=== PATIENT | female | born 1955 | race Caucasian/White ===

== ENCOUNTER 2018-12-15 09:27 | Observation (INO) | payer BC ==
[2018-12-15] MEDS ORDERED: Albuterol/Ipratropium 3.0-0.5 MG/3 ML Neb Soln NEB ONE ×2 (09:50→10:30)
[2018-12-15] MEDS ORDERED: methylPREDNISolone Sodium Succinate 125 MG/2 ML SDV IV ONE (09:50)
[2018-12-15] MEDS ORDERED: Albuterol 0.083% 2.5 MG/3 ML Neb Soln NEB ONE (09:51)
[2018-12-15 10:36] LABS: ANION GAP 15.1 mmol/L (10-20); CHLORIDE,CL 107 mmol/L (98-107); SODIUM,NA 144 mmol/L (136-145)
--- NOTE | 2018-12-15 10:38 | CR ---
[id number] RAD/RAD Chest PA or AP 1V EXAM: FRONTAL CHEST INDICATION: DYSPNEA. COMPARISON: None. DISCUSSION: Heart is borderline enlarged without evidence of congestive heart failure. No focal infiltrates are identified, but evaluation is somewhat limited by portable technique and body habitus. IMPRESSION: 1. Borderline heart size without evidence of congestive heart failure. Dionicio Gaviria MD 12/15/18 1037 Thank you for allowing us to participate in the care of your patient.
--- NOTE | 2018-12-15 10:41 | EDM.PDOC ---
ED HPI GENERAL MEDICAL PROBLEM - General Stated Complaint: SHORTNESS OF BREATH COUGHING WEEZING Time Seen by Provider: 12/15/18 09:35 Source of Information: Reports: Patient History Limitations: Reports: No Limitations - History of Present Illness INITIAL COMMENTS - FREE TEXT/NARRATIVE: Pt. presents to ER with complaints of cough, wheezing, and chest congestion for the past several days. She was recently diagnosed with asthma after taking a PFT /methacholine challenge. She has had 2 exacerbations in the past several months. States that she has never had issues with asthma or COPD in the past. She does have a strong family history of asthma. Pt. was started on an inhaled corticosteroid/LABA combo but has not started this medication yet. She only has albuterol inhaler for acute symptoms. Denies any chest pain, neck, back or arm pain. No nausea/vomiting. Denies diaphoresis. Onset Date: 12/05/18 Location: Reports: Chest, Generalized Severity: Moderate Associated Symptoms: Reports: Shortness of Breath - Related Data Allergies Allergy/AdvReac Type Severity Reaction Status Date / Time aspirin Allergy Shortness Verified 12/15/18 10:25 of breath, eye swelling Home Meds: Home Meds Albuterol Sulfate [Proair Hfa] 2 puff IH QID PRN 12/15/18 [History] Fluticasone Propionate [Flonase] 1 spray NS BID 12/15/18 [History] Fluticasone/Vilanterol [Breo Ellipta 200-25 Mcg INH] 1 puff IH DAILY 12/15/18 [ History] ED ROS GENERAL - Review of Systems Review Of Systems: See Below Constitutional: Reports: Fatigue. Denies: Fever, Chills, Weakness, Diaphoresis HEENT: Reports: No Symptoms, Rhinitis, Sinus Problem Respiratory: Reports: Shortness of Breath, Wheezing Cardiovascular: Reports: No Symptoms Endocrine: Reports: No Symptoms GI/Abdominal: Reports: No Symptoms : Reports: No Symptoms Musculoskeletal: Reports: No Symptoms Skin: Reports: No Symptoms Neurological: Reports: No Symptoms Psychiatric: Reports: No Symptoms Hematologic/Lymphatic: Reports: No Symptoms Immunologic: Reports: No Symptoms ED EXAM, GENERAL - Physical Exam Exam: See Below Exam Limited By: No Limitations General Appearance: Alert, WD/WN, No Apparent Distress Throat/Mouth: Normal Inspection, Normal Lips, Normal Teeth, Normal Gums, Normal Oropharynx, Normal Voice, No Airway Compromise Head: Atraumatic, Normocephalic Neck: Normal Inspection, Supple, Non-Tender, Full Range of Motion Respiratory/Chest: Chest Non-Tender, Decreased Breath Sounds, Wheezing Cardiovascular: Normal Peripheral Pulses, Regular Rate, Rhythm, No Edema, No Gallop, No JVD, No Murmur, No Rub Peripheral Pulses: 3+: Radial (R) GI/Abdominal: Soft, No Organomegaly, No Distention, No Mass (Female) Exam: Deferred Rectal (Female) Exam: Deferred Back Exam: Normal Inspection, Full Range of Motion, NT Extremities: Normal Inspection, Normal Range of Motion, Non-Tender, Normal Capillary Refill, No Pedal Edema Neurological: Alert, Oriented, CN II-XII Intact, Normal Cognition, Normal Gait, Normal Reflexes, No Motor/Sensory Deficits Psychiatric: Normal Affect, Normal Mood EKG INTERPRETATION Rhythm: NSR [place]: Normal P-Wave: Present QRS: Normal ST-T: Normal QT: Normal Course - Orders/Labs/Meds Orders: Active Orders 24 hr Category Date Time Status EKG Documentation Completion [RC] STAT Care 12/15/18 09:49 Active Oxygen Therapy [RC] PRN Care 12/15/18 09:49 Active RT Aerosol Therapy [RC] ASDIRECTED Care 12/15/18 09:50 Active RT Aerosol Therapy [RC] ASDIRECTED Care 12/15/18 09:51 Active RT Aerosol Therapy [RC] ASDIRECTED Care 12/15/18 10:30 Ordered Chest 1V Frontal [CR] Stat Exams 12/15/18 09:52 Taken CBC WITH AUTO DIFF [HEME] Stat Lab 12/15/18 09:48 Received COMPREHENSIVE METABOLIC PN,CMP [CHEM] Stat Lab 12/15/18 09:48 Received CRP [C-REACTIVE PROTEIN] [CHEM] Stat Lab 12/15/18 09:48 Received INFLUENZA A+B AG SCREEN [RM] Stat Lab 12/15/18 09:49 Ordered MAGNESIUM [CHEM] Stat Lab 12/15/18 09:48 Received PHOSPHORUS [CHEM] Stat Lab 12/15/18 09:48 Received PRO B-TYPE NATRIUR PEPT,BNPPRO [CHEM] Stat Lab 12/15/18 09:48 Received TROPONIN I [CHEM] Stat Lab 12/15/18 09:48 Received TSH ULTRASENSITIVE [CHEM] Stat Lab 12/15/18 09:48 Received Sodium Chloride 0.9% [Saline Flush] Med 12/15/18 09:48 Active 10 ml FLUSH ASDIRECTED PRN Peripheral IV Insertion Adult [OM.PC] Routine Oth 12/15/18 09:49 Ordered Medication Orders Sodium Chloride (Saline Flush) 10 ml FLUSH ASDIRECTED PRN PRN Reason: Keep Vein Open Labs: Laboratory Tests 12/15/18 Range/Units 09:48 PT 10.0 (9.6-11.4) SEC INR 1.0 L (2.0-3.5) Meds: Medications Generic Name Dose Route Start Last Admin Trade Name Freq PRN Reason Stop Dose Admin Sodium Chloride 10 ml 12/15/18 09:48 Saline Flush FLUSH ASDIRECTED PRN Keep Vein Open Discontinued Medications Generic Name Dose Route Start Last Admin Trade Name Freq PRN Reason Stop Dose Admin Albuterol 2.5 mg 12/15/18 09:51 Proventil Neb Soln NEB 12/15/18 09:52 ONETIME ONE Albuterol/Ipratropium 3 ml 12/15/18 09:50 Duoneb 3.0-0.5 Mg/3 Ml NEB 12/15/18 09:51 ONETIME ONE Albuterol/Ipratropium 3 ml 12/15/18 10:30 Duoneb 3.0-0.5 Mg/3 Ml NEB 12/15/18 10:31 ONETIME ONE Methylprednisolone Sodium Succinate 125 mg 12/15/18 09:50 Solu-Medrol IV 12/15/18 09:51 ONETIME ONE - Radiology Interpretation Free Text/Narrative:: No acute infiltrate of failure pattern. Borderline cardiomegaly, possibly due to portable technique. Departure - Departure Time of Disposition: 11:03 Disposition: Refer to Observation Clinical Impression: Acute asthma - Discharge Information Referrals: Tata Landaverde PA-C [Primary Care Provider] - - Problem List Review Problem List Initiated/Reviewed/Updated: Yes - My Orders Last 24 Hours: My Active Orders 12/15/18 09:48 CBC WITH AUTO DIFF [HEME] Stat COMPREHENSIVE METABOLIC PN,CMP [CHEM] Stat CRP [C-REACTIVE PROTEIN] [CHEM] Stat MAGNESIUM [CHEM] Stat PHOSPHORUS [CHEM] Stat PRO B-TYPE NATRIUR PEPT,BNPPRO [CHEM] Stat TROPONIN I [CHEM] Stat TSH ULTRASENSITIVE [CHEM] Stat Sodium Chloride 0.9% [Saline Flush] 10 ml FLUSH ASDIRECTED PRN 12/15/18 09:49 EKG Documentation Completion [RC] STAT Oxygen Therapy [RC] PRN INFLUENZA A+B AG SCREEN [RM] Stat Peripheral IV Insertion Adult [OM.PC] Routine 12/15/18 09:50 RT Aerosol Therapy [RC] ASDIRECTED 12/15/18 09:51 RT Aerosol Therapy [RC] ASDIRECTED 12/15/18 09:52 Chest 1V Frontal [CR] Stat 12/15/18 10:30 RT Aerosol Therapy [RC] ASDIRECTED - Assessment/Plan Admission H&P: Please use this note as an admission H&P Last 24 Hours: My Active Orders 12/15/18 09:48 CBC WITH AUTO DIFF [HEME] Stat COMPREHENSIVE METABOLIC PN,CMP [CHEM] Stat CRP [C-REACTIVE PROTEIN] [CHEM] Stat MAGNESIUM [CHEM] Stat PHOSPHORUS [CHEM] Stat PRO B-TYPE NATRIUR PEPT,BNPPRO [CHEM] Stat TROPONIN I [CHEM] Stat TSH ULTRASENSITIVE [CHEM] Stat Sodium Chloride 0.9% [Saline Flush] 10 ml FLUSH ASDIRECTED PRN 12/15/18 09:49 EKG Documentation Completion [RC] STAT Oxygen Therapy [RC] PRN INFLUENZA A+B AG SCREEN [RM] Stat Peripheral IV Insertion Adult [OM.PC] Routine 12/15/18 09:50 RT Aerosol Therapy [RC] ASDIRECTED 12/15/18 09:51 RT Aerosol Therapy [RC] ASDIRECTED 12/15/18 09:52 Chest 1V Frontal [CR] Stat 12/15/18 10:30 RT Aerosol Therapy [RC] ASDIRECTED Plan: Will admit observation. She continues to wheeze quite a lot after 3 nebs. Initial peak flow was 300 (80%) and has consistently been in the 330 (88%) range. She is still obviously dyspneic, particularly with activity. Influenza was negative. No obvious infiltrate noted on the chest x-ray. She is a code 1. Will continue with duonebs every 4 hours, with albuterol as needed in between. Continue with solu medrol. Start doxycycline 100mg twice daily as well. All questions were answered.
[2018-12-15] MEDS ORDERED: Doxycycline 100 MG Cap PO ONE (10:54)
[2018-12-15] MEDS ORDERED: Albuterol 0.083% 2.5 MG/3 ML Neb Soln NEB PRN (11:27)
[2018-12-15] MEDS: VILANTEROL IH SCH (12:08)
[2018-12-15] MEDS: FLUTICASONE IH SCH (12:08)
[2018-12-15] MEDS: Albuterol/Ipratropium 3.0-0.5 MG/3 ML Neb Soln NEB SCH ×3 (14:41→22:32)
[2018-12-15] MEDS: methylPREDNISolone Sodium Succinate 125 MG/2 ML SDV IVPUSH SCH ×2 (15:40→22:32)
[2018-12-15] MEDS: Acetaminophen 500 MG Tab PO PRN ×2 (16:28→22:40)
[2018-12-15] MEDS: Doxycycline 100 MG Cap PO SCH (20:08)
[2018-12-15] MEDS: Sodium Chloride 0.9% 10 ML Syringe FLUSH PRN (22:32)
[2018-12-16] MEDS: Ondansetron 4 MG/2 ML SDV IVPUSH SCH ×3 (00:08→16:03)
[2018-12-16] MEDS: Sodium Chloride 0.9% 10 ML Syringe FLUSH PRN ×2 (00:08→03:25)
[2018-12-16] MEDS: Albuterol/Ipratropium 3.0-0.5 MG/3 ML Neb Soln NEB SCH ×6 (03:24→22:27)
[2018-12-16] MEDS: methylPREDNISolone Sodium Succinate 125 MG/2 ML SDV IVPUSH SCH ×4 (03:24→22:27)
[2018-12-16] MEDS: Acetaminophen 500 MG Tab PO PRN ×3 (04:51→22:27)
[2018-12-16] MEDS: FLUTICASONE IH SCH (08:12)
[2018-12-16] MEDS: Doxycycline 100 MG Cap PO SCH ×2 (08:12→19:26)
[2018-12-16] MEDS: VILANTEROL IH SCH (08:12)
[2018-12-16] MEDS: Lactated Ringers 1,000 ML IV SCH ×2 (09:19→19:28)
[2018-12-16] MEDS ORDERED: Metoclopramide 10 MG/2 ML SDV IVPUSH SCH (09:30)
[2018-12-16 10:02] LABS: ANION GAP 17.9 mmol/L (10-20)
--- NOTE | 2018-12-16 10:26 | PCM.PN ---
- General Info Date of Service: 12/09/18 Admission Dx/Problem (Free Text): 12/16/18 1800 Pt. states that she is feeling somewhat less short of breath. Her peak flows are still in the 250-300 range. Denies any fever or chills. No chest pain. No nausea or vomiting since decreasing the steroids. She still is dyspneic when she is up ambulating or using the bathroom, but denies any significant dyspnea when she is resting. Functional Status: Reports: Pain Controlled - Review of Systems General: Reports: Fatigue. Denies: Fever, Weakness HEENT: Reports: No Symptoms Pulmonary: Reports: Shortness of Breath, Wheezing Cardiovascular: Reports: No Symptoms Gastrointestinal: Reports: Diarrhea Genitourinary: Reports: No Symptoms Musculoskeletal: Reports: No Symptoms Skin: Reports: No Symptoms Neurological: Reports: No Symptoms Psychiatric: Reports: No Symptoms - Patient Data Vitals - Most Recent: Last Vital Signs Temp 37.2 C 12/16/18 09:57 Pulse 87 12/16/18 09:57 Resp 20 12/16/18 09:57 BP 138/80 12/16/18 09:57 Pulse Ox 91 L 12/16/18 09:57 Weight - Most Recent: 90.718 kg I&O - Last 24 Hours: Intake & Output 12/15/18 12/16/18 12/16/18 22:59 06:59 14:59 Intake Total 240 350 Output Total 250 300 300 Balance -10 50 -300 Lab Results Last 24 Hours: Laboratory Results - last 24 hr 12/15/18 12/15/18 12/15/18 Range/Units 09:48 09:48 09:48 WBC 7.9 (4.0-10.0) x10^3/uL RBC 4.57 (4.00-5.50) x10^6/uL Hgb 13.5 (12.0-16.0) g/dL Hct 42.6 (33.0-47.0) % MCV 93.2 H (78.0-93.0) fL MCH 29.5 (26.0-32.0) pg MCHC 31.7 L (32.0-36.0) g/dL RDW Coeff of Elan 13.7 (10.0-15.0) % Plt Count 255 (130-400) x10^3/uL Neut % (Auto) 52.2 (50.0-80.0) % Lymph % (Auto) 24.2 L (25.0-50.0) % [place] % (Auto) 6.1 (2.0-11.0) % Eos % (Auto) 16.9 H (0.0-4.0) % Baso % (Auto) 0.6 (0.2-1.2) % PT 10.0 (9.6-11.4) SEC INR 1.0 L (2.0-3.5) Sodium 144 (136-145) mmol/L Potassium 4.1 (3.5-5.1) mmol/L Chloride 107 (98-107) mmol/L Carbon Dioxide 26 (21-32) mmol/L Anion Gap 15.1 (10-20) mmol/L BUN 13 (7-18) mg/dL Creatinine 1.0 (0.55-1.02) mg/dL Est Cr Clr Drug Dosing TNP Estimated GFR (MDRD) 56 Glucose 84 (74-106) mg/dL Calcium 9.5 (8.5-10.1) mg/dL Corrected Calcium 9.90 (8.5-10.1) mg/dL Phosphorus 2.2 L (2.6-4.7) mg/dL Magnesium 2.1 (1.8-2.4) mg/dL Total Bilirubin 0.3 (0.2-1.0) mg/dL AST 17 (15-37) U/L ALT 29 (14-59) U/L Alkaline Phosphatase 92 (46-116) U/L Troponin I < 0.017 (<=0.056) ng/mL C-Reactive Protein 1.4 H (<=0.9) mg/dL NT-Pro-B Natriuret Pep 85 (<=125) pg/mL Total Protein 7.3 (6.4-8.2) g/dL Albumin 3.5 (3.4-5.0) g/dL Globulin 3.8 Albumin/Globulin Ratio 0.92 TSH, Ultra Sensitive 1.438 (0.358-3.74) uIU/mL 12/15/18 12/16/18 12/16/18 Range/Units 16:50 09:24 09:24 WBC 15.5 H (4.0-10.0) x10^3/uL RBC 4.74 (4.00-5.50) x10^6/uL Hgb 14.0 (12.0-16.0) g/dL Hct 43.6 (33.0-47.0) % MCV 92.0 (78.0-93.0) fL MCH 29.5 (26.0-32.0) pg MCHC 32.1 (32.0-36.0) g/dL RDW Coeff of Elan 14.0 (10.0-15.0) % Plt Count 289 (130-400) x10^3/uL Neut % (Auto) 92.5 H (50.0-80.0) % Lymph % (Auto) 6.5 L (25.0-50.0) % [place] % (Auto) 0.8 L (2.0-11.0) % Eos % (Auto) 0.1 (0.0-4.0) % Baso % (Auto) 0.1 L (0.2-1.2) % PT (9.6-11.4) SEC INR (2.0-3.5) Sodium 142 (136-145) mmol/L Potassium 3.9 (3.5-5.1) mmol/L Chloride 105 (98-107) mmol/L Carbon Dioxide 23 (21-32) mmol/L Anion Gap 17.9 (10-20) mmol/L BUN 14 (7-18) mg/dL Creatinine 1.0 (0.55-1.02) mg/dL Est Cr Clr Drug Dosing 40.82 Estimated GFR (MDRD) 56 Glucose 161 H (74-106) mg/dL Calcium 10.0 (8.5-10.1) mg/dL Corrected Calcium 10.16 H (8.5-10.1) mg/dL Phosphorus (2.6-4.7) mg/dL Magnesium (1.8-2.4) mg/dL Total Bilirubin 0.4 (0.2-1.0) mg/dL AST 15 (15-37) U/L ALT 31 (14-59) U/L Alkaline Phosphatase 88 (46-116) U/L Troponin I < 0.017 (<=0.056) ng/mL C-Reactive Protein 0.8 (<=0.9) mg/dL NT-Pro-B Natriuret Pep (<=125) pg/mL Total Protein 7.6 (6.4-8.2) g/dL Albumin 3.8 (3.4-5.0) g/dL Globulin 3.8 Albumin/Globulin Ratio 1.00 TSH, Ultra Sensitive (0.358-3.74) uIU/mL Shadi Results Last 24 Hours: Microbiology 12/15/18 09:49 Influenza Type A Antigen Screen - Final Nasal, Unspecified NEGATIVE INFLUENZA A VIRUS AG Influenza Type B Antigen Screen - Final NEGATIVE INFLUENZA B VIRUS AG Med Orders - Current: Current Medications Acetaminophen (Tylenol Extra Strength) 1,000 mg PO Q6H PRN PRN Reason: Pain Last Admin: 12/16/18 04:51 Dose: 1,000 mg Albuterol (Proventil Neb Soln) 2.5 mg NEB Q2H PRN PRN Reason: Dyspnea Last Admin: 12/16/18 09:09 Dose: 2.5 mg Albuterol/Ipratropium (Duoneb 3.0-0.5 Mg/3 Ml) 3 ml NEB Q4HRRT [facility] Last Admin: 12/16/18 07:03 Dose: 3 ml Doxycycline Hyclate (Vibramycin) 100 mg PO BID [facility] Last Admin: 12/16/18 08:12 Dose: 100 mg Lactated Ringer's (Ringers, Lactated) 1,000 mls @ 100 mls/hr IV ASDIRECTED [facility] Last Admin: 12/16/18 09:19 Dose: 100 mls/hr Methylprednisolone Sodium Succinate (Solu-Medrol) 80 mg IVPUSH Q6H [facility] Patients Own ( Fluticasone/Vilanterol [Breo Ellipta 200-25 Mcg Inh] 1 Pu 1 puff IH DAILY [facility] Last Admin: 12/16/18 08:12 Dose: 1 puff Ondansetron HCl (Zofran) 4 mg IVPUSH Q8H [facility] Last Admin: 12/16/18 08:11 Dose: 4 mg Sodium Chloride (Saline Flush) 10 ml FLUSH ASDIRECTED PRN PRN Reason: Keep Vein Open Last Admin: 12/16/18 03:25 Dose: 10 ml Discontinued Medications Albuterol (Proventil Neb Soln) 2.5 mg NEB ONETIME ONE Stop: 12/15/18 09:52 Last Admin: 12/15/18 10:00 Dose: 2.5 mg Albuterol/Ipratropium (Duoneb 3.0-0.5 Mg/3 Ml) 3 ml NEB ONETIME ONE Stop: 12/15/18 09:51 Last Admin: 12/15/18 09:38 Dose: 3 ml Albuterol/Ipratropium (Duoneb 3.0-0.5 Mg/3 Ml) 3 ml NEB ONETIME ONE Stop: 12/15/18 10:31 Last Admin: 12/15/18 10:40 Dose: 3 ml Doxycycline Hyclate (Vibramycin) 100 mg PO ONETIME ONE Stop: 12/15/18 10:55 Last Admin: 12/15/18 11:06 Dose: 100 mg Methylprednisolone Sodium Succinate (Solu-Medrol) 125 mg IV ONETIME ONE Stop: 12/15/18 09:51 Last Admin: 12/15/18 09:40 Dose: 125 mg Methylprednisolone Sodium Succinate (Solu-Medrol) 125 mg IVPUSH Q6H [facility] Last Admin: 12/16/18 03:24 Dose: 125 mg Metoclopramide HCl (Reglan) 5 mg IVPUSH Q6H [facility] Last Admin: 12/16/18 09:15 Dose: 5 mg - Exam Quality Assessment: Supplemental Oxygen General: Alert, Oriented Neck: Supple Lungs: Decreased Breath Sounds, Wheezing Cardiovascular: Regular Rate, Regular Rhythm GI/Abdominal Exam: Soft, No Mass, Tender (diffusely tender), Other (hyperactive bowel sounds) (Female) Exam: Deferred Extremities: Normal Inspection, Normal Range of Motion, Non-Tender, No Pedal Edema, Normal Capillary Refill Peripheral Pulses: 4+: Radial (R) Skin: Warm, Dry, Intact Neurological: No New Focal Deficit Psy/Mental Status: Alert, Normal Affect, Normal Mood - Problem List Review Problem List Initiated/Reviewed/Updated: Yes - My Orders Last 24 Hours: My Active Orders 12/15/18 09:48 Sodium Chloride 0.9% [Saline Flush] 10 ml FLUSH ASDIRECTED PRN 12/15/18 09:49 Oxygen Therapy [RC] PRN Peripheral IV Insertion Adult [OM.PC] Routine 12/15/18 09:50 RT Aerosol Therapy [RC] ASDIRECTED 12/15/18 09:51 RT Aerosol Therapy [RC] ASDIRECTED 12/15/18 10:30 RT Aerosol Therapy [RC] 03,07,11,15,19,23 12/15/18 10:53 Patient Status [ADT] Routine 12/15/18 11:25 Intake and Output [RC] 06,18 Oxygen Therapy [RC] 08,20 Up With Assistance [RC] 08,20 Vital Signs [RC] 06,10,14,18,22,02 Code Status [Resuscitation Status] Routine 12/15/18 11:27 RT Aerosol Therapy [RC] ASDIRECTED RT Aerosol Therapy [RC] ASDIRECTED Albuterol [Proventil Neb Soln] 2.5 mg NEB Q2H PRN 12/15/18 11:30 Fluticasone/Vilanterol [Breo Ellipta 200-25 Mcg INH] 1 puff IH DAILY 12/15/18 15:00 Albuterol/Ipratropium [DuoNeb 3.0-0.5 MG/3 ML] 3 ml NEB Q4HRRT 12/15/18 15:57 Acetaminophen [Tylenol Extra Strength] 1,000 mg PO Q6H PRN 12/15/18 20:00 Doxycycline [Vibramycin] 100 mg PO BID 12/15/18 23:40 Dietary Supplements [RC] 0730,1730 12/15/18 Lunch Regular Diet [DIET] 12/16/18 00:00 Ondansetron [Zofran] 4 mg IVPUSH Q8H 12/16/18 09:05 Chest 2V [CR] Routine 12/16/18 09:15 Lactated Ringers [Ringers, Lactated] 1,000 ml IV ASDIRECTED 12/16/18 10:00 methylPREDNISolone Sod Succ [Solu-MEDROL] 80 mg IVPUSH Q6H - Plan Plan:: COntinue with IV NS with 40 kcl at 125ml/hr. Continue with oral vitamin K for coagulopathy.
--- NOTE | 2018-12-16 11:32 | CR ---
[id number] RAD/RAD Chest PA And Lateral EXAM: RAD Chest PA And Lateral INDICATION: ASTHMA EXACERBATION. COMPARISON: December 15, 2018. DISCUSSION: Cardiomediastinal silhouette is stable in size and contour. No infiltrate, effusion, pneumothorax, or edema. Pulmonary hyperinflation. IMPRESSION: Stable chest. Bhavik Davison DO 12/16/18 1130 Thank you for allowing us to participate in the care of your patient.
--- NOTE | 2018-12-16 14:34 | PCM.PN ---
- General Info Date of Service: 12/16/18 Admission Dx/Problem (Free Text): Pt. is continuing to have some dyspnea and wheezing. Pt. did have some nausea overnight that was refractory to zofran. She was started on IV reglan. She has also had some headache which she has been receiving tylenol for. The headache and stomach upset likely are side effects from the solu medrol. Continues to receive duoneb treatments every 4 hours with additional albuterol as needed. She has not required any albuterol. Repeat trop I was negative. Her chest xray was unchanged, however she did have a WBC of 15,000 today. The rest of her labs are still WNL. Her CRP has improved. She has been afebrile. Functional Status: Reports: Pain Controlled - Review of Systems General: Reports: No Symptoms HEENT: Reports: No Symptoms Pulmonary: Reports: Shortness of Breath, Wheezing Cardiovascular: Reports: No Symptoms Gastrointestinal: Reports: No Symptoms Genitourinary: Reports: No Symptoms Musculoskeletal: Reports: No Symptoms Skin: Reports: No Symptoms Neurological: Reports: No Symptoms Psychiatric: Reports: No Symptoms - Patient Data Vitals - Most Recent: Last Vital Signs Temp 37.0 C 12/16/18 14:00 Pulse 86 12/16/18 14:00 Resp 20 12/16/18 14:00 BP 151/75 H 12/16/18 14:00 Pulse Ox 94 L 12/16/18 14:00 Weight - Most Recent: 90.718 kg I&O - Last 24 Hours: Intake & Output 12/15/18 12/16/18 12/16/18 22:59 06:59 14:59 Intake Total 240 350 Output Total 250 300 300 Balance -10 50 -300 Lab Results Last 24 Hours: Laboratory Results - last 24 hr 12/15/18 12/16/18 12/16/18 Range/Units 16:50 09:24 09:24 WBC 15.5 H (4.0-10.0) x10^3/uL RBC 4.74 (4.00-5.50) x10^6/uL Hgb 14.0 (12.0-16.0) g/dL Hct 43.6 (33.0-47.0) % MCV 92.0 (78.0-93.0) fL MCH 29.5 (26.0-32.0) pg MCHC 32.1 (32.0-36.0) g/dL RDW Coeff of Elan 14.0 (10.0-15.0) % Plt Count 289 (130-400) x10^3/uL Neut % (Auto) 92.5 H (50.0-80.0) % Lymph % (Auto) 6.5 L (25.0-50.0) % [place] % (Auto) 0.8 L (2.0-11.0) % Eos % (Auto) 0.1 (0.0-4.0) % Baso % (Auto) 0.1 L (0.2-1.2) % Sodium 142 (136-145) mmol/L Potassium 3.9 (3.5-5.1) mmol/L Chloride 105 (98-107) mmol/L Carbon Dioxide 23 (21-32) mmol/L Anion Gap 17.9 (10-20) mmol/L BUN 14 (7-18) mg/dL Creatinine 1.0 (0.55-1.02) mg/dL Est Cr Clr Drug Dosing 40.82 mL/min Estimated GFR (MDRD) 56 Glucose 161 H (74-106) mg/dL Calcium 10.0 (8.5-10.1) mg/dL Corrected Calcium 10.16 H (8.5-10.1) mg/dL Total Bilirubin 0.4 (0.2-1.0) mg/dL AST 15 (15-37) U/L ALT 31 (14-59) U/L Alkaline Phosphatase 88 (46-116) U/L Troponin I < 0.017 (<=0.056) ng/mL C-Reactive Protein 0.8 (<=0.9) mg/dL Total Protein 7.6 (6.4-8.2) g/dL Albumin 3.8 (3.4-5.0) g/dL Globulin 3.8 Albumin/Globulin Ratio 1.00 Shadi Results Last 24 Hours: Microbiology 12/15/18 09:49 Influenza Type A Antigen Screen - Final Nasal, Unspecified NEGATIVE INFLUENZA A VIRUS AG Influenza Type B Antigen Screen - Final NEGATIVE INFLUENZA B VIRUS AG Med Orders - Current: Current Medications Acetaminophen (Tylenol Extra Strength) 1,000 mg PO Q6H PRN PRN Reason: Pain Last Admin: 12/16/18 10:43 Dose: 1,000 mg Albuterol (Proventil Neb Soln) 2.5 mg NEB Q2H PRN PRN Reason: Dyspnea Last Admin: 12/16/18 09:09 Dose: 2.5 mg Albuterol/Ipratropium (Duoneb 3.0-0.5 Mg/3 Ml) 3 ml NEB Q4HRRT [facility] Last Admin: 12/16/18 11:32 Dose: 3 ml Doxycycline Hyclate (Vibramycin) 100 mg PO BID [facility] Last Admin: 12/16/18 08:12 Dose: 100 mg Lactated Ringer's (Ringers, Lactated) 1,000 mls @ 100 mls/hr IV ASDIRECTED [facility] Last Admin: 12/16/18 09:19 Dose: 100 mls/hr Methylprednisolone Sodium Succinate (Solu-Medrol) 80 mg IVPUSH Q6H [facility] Last Admin: 12/16/18 10:43 Dose: 80 mg Patients Own ( Fluticasone/Vilanterol [Breo Ellipta 200-25 Mcg Inh] 1 Pu 1 puff IH DAILY [facility] Last Admin: 12/16/18 08:12 Dose: 1 puff Ondansetron HCl (Zofran) 4 mg IVPUSH Q8H [facility] Last Admin: 12/16/18 08:11 Dose: 4 mg Sodium Chloride (Saline Flush) 10 ml FLUSH ASDIRECTED PRN PRN Reason: Keep Vein Open Last Admin: 12/16/18 03:25 Dose: 10 ml Discontinued Medications Albuterol (Proventil Neb Soln) 2.5 mg NEB ONETIME ONE Stop: 12/15/18 09:52 Last Admin: 12/15/18 10:00 Dose: 2.5 mg Albuterol/Ipratropium (Duoneb 3.0-0.5 Mg/3 Ml) 3 ml NEB ONETIME ONE Stop: 12/15/18 09:51 Last Admin: 12/15/18 09:38 Dose: 3 ml Albuterol/Ipratropium (Duoneb 3.0-0.5 Mg/3 Ml) 3 ml NEB ONETIME ONE Stop: 12/15/18 10:31 Last Admin: 12/15/18 10:40 Dose: 3 ml Doxycycline Hyclate (Vibramycin) 100 mg PO ONETIME ONE Stop: 12/15/18 10:55 Last Admin: 12/15/18 11:06 Dose: 100 mg Methylprednisolone Sodium Succinate (Solu-Medrol) 125 mg IV ONETIME ONE Stop: 12/15/18 09:51 Last Admin: 12/15/18 09:40 Dose: 125 mg Methylprednisolone Sodium Succinate (Solu-Medrol) 125 mg IVPUSH Q6H [facility] Last Admin: 12/16/18 03:24 Dose: 125 mg Metoclopramide HCl (Reglan) 5 mg IVPUSH Q6H [facility] Last Admin: 12/16/18 09:15 Dose: 5 mg - Exam General: Alert, Oriented HEENT: Other (mouth is dry) Neck: No JVD Lungs: Wheezing (lung sounds less diminished, continues to wheeze) Cardiovascular: Regular Rate, Regular Rhythm GI/Abdominal Exam: Normal Bowel Sounds, Soft, Non-Tender, No Organomegaly, No Distention, No Abnormal Bruit, No Mass, Pelvis Stable (Female) Exam: Deferred Back Exam: Normal Inspection, Full Range of Motion Extremities: Normal Inspection, Normal Range of Motion, Non-Tender, No Pedal Edema, Normal Capillary Refill Skin: Warm, Dry, Intact Neurological: No New Focal Deficit Psy/Mental Status: Alert, Normal Affect, Normal Mood - Problem List Review Problem List Initiated/Reviewed/Updated: Yes - My Orders Last 24 Hours: My Active Orders 12/15/18 15:00 Albuterol/Ipratropium [DuoNeb 3.0-0.5 MG/3 ML] 3 ml NEB Q4HRRT 12/15/18 15:57 Acetaminophen [Tylenol Extra Strength] 1,000 mg PO Q6H PRN 12/15/18 20:00 Doxycycline [Vibramycin] 100 mg PO BID 12/15/18 23:40 Dietary Supplements [RC] 0730,1730 12/16/18 00:00 Ondansetron [Zofran] 4 mg IVPUSH Q8H 12/16/18 09:15 Lactated Ringers [Ringers, Lactated] 1,000 ml IV ASDIRECTED 12/16/18 10:00 methylPREDNISolone Sod Succ [Solu-MEDROL] 80 mg IVPUSH Q6H - Plan Plan:: Will continue with breathing treatments. I did decrease her solu medrol to 80 mg every 6 hours. I did start her on maintenance fluids, as she appears a bit dehydrated. Will keep the patient on observation status for one more night. Will continue doxycycline, as there likely is a component of bronchitis associated with this as well. All questions were answered.
[2018-12-16] MEDS: Enoxaparin 40 MG/0.4 ML Syringe SUBCUT SCH (16:03)
[2018-12-17] MEDS: Sodium Chloride 0.9% 10 ML Syringe FLUSH PRN (00:41)
[2018-12-17] MEDS: Ondansetron 4 MG/2 ML SDV IVPUSH SCH ×2 (00:41→07:39)
[2018-12-17] MEDS: Albuterol/Ipratropium 3.0-0.5 MG/3 ML Neb Soln NEB SCH ×2 (03:30→06:01)
[2018-12-17] MEDS: methylPREDNISolone Sodium Succinate 125 MG/2 ML SDV IVPUSH SCH (03:35)
[2018-12-17] MEDS: Enoxaparin 40 MG/0.4 ML Syringe SUBCUT SCH (07:38)
[2018-12-17] MEDS: Doxycycline 100 MG Cap PO SCH (07:39)
[2018-12-17] MEDS: FLUTICASONE IH SCH (07:42)
[2018-12-17] MEDS: VILANTEROL IH SCH (07:42)
--- NOTE | 2018-12-17 09:15 | PCM.DCSUM1 ---
Discharge Summary - Hospital Course Brief History: Patient admitted with a COPD exacerbation. Placed on IV steroids , nebulizer treatments. Has developed some nausea, but patient reports this can be normal for her when she is ill. Diagnosis: Stroke: No - Discharge Data Discharge Date: 12/17/18 Discharge Disposition: Home, Self-Care 01 Condition: Good - Discharge Diagnosis/Problem(s) (1) COPD with exacerbation SNOMED Code(s): 823090394 ICD Code: J44.1 - CHRONIC OBSTRUCTIVE PULMONARY DISEASE W (ACUTE) EXACERBATION Status: Acute Priority: Medium Current Visit: Yes - Patient Summary/Data Hospital Course: Patient admitted to the hospital with several days of reported wheezing and coughing. She has been diagnosed with asthma, as well as COPD. Treatment here included IV corticosteroids with nebulizer treatments. Slowly improved and does wish to be discharged today. No wheezing this am. Minimal cough. - Patient Instructions Diet: Usual Diet as Tolerated Activity: As Tolerated Other/Special Instructions: Follow up with Tata Landaverde later this week or Saturday - Discharge Plan *PRESCRIPTION DRUG MONITORING PROGRAM REVIEWED*: Not Applicable *COPY OF PRESCRIPTION DRUG MONITORING REPORT IN PATIENT ALEX: Not Applicable Home Medications: Home Meds Albuterol Sulfate [Proair Hfa] 2 puff IH QID PRN 12/15/18 [History] Fluticasone Propionate [Flonase] 1 spray NS BID 12/15/18 [History] Fluticasone/Vilanterol [Breo Ellipta 200-25 Mcg INH] 1 puff IH DAILY 12/15/18 [ History] Forms: ED Department Discharge Referrals: Tata Landaverde PA-C [Primary Care Provider] - - Discharge Summary/Plan Comment DC Time >30 min.: Yes - General Info Date of Service: 12/17/18 Admission Dx/Problem (Free Text: Pt. is continuing to have some dyspnea and wheezing. Pt. did have some nausea overnight that was refractory to zofran. She was started on IV reglan. She has also had some headache which she has been receiving tylenol for. The headache and stomach upset likely are side effects from the solu medrol. Continues to receive duoneb treatments every 4 hours with additional albuterol as needed. She has not required any albuterol. Repeat trop I was negative. Her chest xray was unchanged, however she did have a WBC of 15,000 today. The rest of her labs are still WNL. Her CRP has improved. She has been afebrile. Functional Status: Reports: Pain Controlled, Tolerating Diet - Review of Systems General: Reports: No Symptoms HEENT: Reports: No Symptoms Pulmonary: Reports: No Symptoms Cardiovascular: Reports: No Symptoms Gastrointestinal: Reports: Nausea Genitourinary: Reports: No Symptoms Musculoskeletal: Reports: No Symptoms Skin: Reports: No Symptoms Neurological: Reports: No Symptoms Psychiatric: Reports: No Symptoms - Patient Data Vitals - Most Recent: Last Vital Signs Temp 36.6 C 12/17/18 05:56 Pulse 92 12/17/18 05:56 Resp 20 12/17/18 05:56 BP 159/76 H 12/17/18 05:56 Pulse Ox 99 12/17/18 05:56 Weight - Most Recent: 90.718 kg I&O - Last 24 hours: Intake & Output 12/16/18 12/17/18 12/17/18 22:59 06:59 14:59 Intake Total 1588 1000 Output Total 100 Balance 1588 900 Lab Results - Last 24 hrs: Laboratory Results - last 24 hr 12/16/18 12/16/18 12/17/18 Range/Units 09:24 09:24 06:54 WBC 15.5 H 14.5 H (4.0-10.0) x10^3/uL RBC 4.74 4.27 (4.00-5.50) x10^6/uL Hgb 14.0 12.8 (12.0-16.0) g/dL Hct 43.6 39.9 (33.0-47.0) % MCV 92.0 93.4 H (78.0-93.0) fL MCH 29.5 30.0 (26.0-32.0) pg MCHC 32.1 32.1 (32.0-36.0) g/dL RDW Coeff of Elan 14.0 14.1 (10.0-15.0) % Plt Count 289 290 (130-400) x10^3/uL Neut % (Auto) 92.5 H (50.0-80.0) % Lymph % (Auto) 6.5 L (25.0-50.0) % [place] % (Auto) 0.8 L (2.0-11.0) % Eos % (Auto) 0.1 (0.0-4.0) % Baso % (Auto) 0.1 L (0.2-1.2) % Sodium 142 (136-145) mmol/L Potassium 3.9 (3.5-5.1) mmol/L Chloride 105 (98-107) mmol/L Carbon Dioxide 23 (21-32) mmol/L Anion Gap 17.9 (10-20) mmol/L BUN 14 (7-18) mg/dL Creatinine 1.0 (0.55-1.02) mg/dL Est Cr Clr Drug Dosing 40.82 mL/min Estimated GFR (MDRD) 56 Glucose 161 H (74-106) mg/dL Calcium 10.0 (8.5-10.1) mg/dL Corrected Calcium 10.16 H (8.5-10.1) mg/dL Total Bilirubin 0.4 (0.2-1.0) mg/dL AST 15 (15-37) U/L ALT 31 (14-59) U/L Alkaline Phosphatase 88 (46-116) U/L C-Reactive Protein 0.8 (<=0.9) mg/dL Total Protein 7.6 (6.4-8.2) g/dL Albumin 3.8 (3.4-5.0) g/dL Globulin 3.8 Albumin/Globulin Ratio 1.00 Med Orders - Current: Current Medications Acetaminophen (Tylenol Extra Strength) 1,000 mg PO Q6H PRN PRN Reason: Pain Last Admin: 12/16/18 22:27 Dose: 1,000 mg Albuterol (Proventil Neb Soln) 2.5 mg NEB Q2H PRN PRN Reason: Dyspnea Last Admin: 12/16/18 09:09 Dose: 2.5 mg Albuterol/Ipratropium (Duoneb 3.0-0.5 Mg/3 Ml) 3 ml NEB Q4HRRT [facility] Last Admin: 12/17/18 06:01 Dose: 3 ml Doxycycline Hyclate (Vibramycin) 100 mg PO BID [facility] Last Admin: 12/17/18 07:39 Dose: 100 mg Enoxaparin Sodium (Lovenox) 40 mg SUBCUT DAILY [facility] Last Admin: 12/17/18 07:38 Dose: 40 mg Lactated Ringer's (Ringers, Lactated) 1,000 mls @ 100 mls/hr IV ASDIRECTED JOAQUIN Last Admin: 12/16/18 19:28 Dose: 100 mls/hr Methylprednisolone Sodium Succinate (Solu-Medrol) 80 mg IVPUSH Q6H [facility] Last Admin: 12/17/18 03:35 Dose: 80 mg Patients Own ( Fluticasone/Vilanterol [Breo Ellipta 200-25 Mcg Inh] 1 Pu 1 puff IH DAILY [facility] Last Admin: 12/17/18 07:42 Dose: 1 puff Ondansetron HCl (Zofran) 4 mg IVPUSH Q8H [facility] Last Admin: 12/17/18 07:39 Dose: 4 mg Sodium Chloride (Saline Flush) 10 ml FLUSH ASDIRECTED PRN PRN Reason: Keep Vein Open Last Admin: 12/17/18 00:41 Dose: 10 ml Discontinued Medications Albuterol (Proventil Neb Soln) 2.5 mg NEB ONETIME ONE Stop: 12/15/18 09:52 Last Admin: 12/15/18 10:00 Dose: 2.5 mg Albuterol/Ipratropium (Duoneb 3.0-0.5 Mg/3 Ml) 3 ml NEB ONETIME ONE Stop: 12/15/18 09:51 Last Admin: 12/15/18 09:38 Dose: 3 ml Albuterol/Ipratropium (Duoneb 3.0-0.5 Mg/3 Ml) 3 ml NEB ONETIME ONE Stop: 12/15/18 10:31 Last Admin: 12/15/18 10:40 Dose: 3 ml Doxycycline Hyclate (Vibramycin) 100 mg PO ONETIME ONE Stop: 12/15/18 10:55 Last Admin: 12/15/18 11:06 Dose: 100 mg Methylprednisolone Sodium Succinate (Solu-Medrol) 125 mg IV ONETIME ONE Stop: 12/15/18 09:51 Last Admin: 12/15/18 09:40 Dose: 125 mg Methylprednisolone Sodium Succinate (Solu-Medrol) 125 mg IVPUSH Q6H [facility] Last Admin: 12/16/18 03:24 Dose: 125 mg Metoclopramide HCl (Reglan) 5 mg IVPUSH Q6H [facility] Last Admin: 12/16/18 09:15 Dose: 5 mg - Exam Quality Assessment: Denies: Supplemental Oxygen General: Reports: Alert, Oriented, Cooperative, No Acute Distress HEENT: Reports: Pupils Equal, Pupils Reactive Lungs: Reports: Clear to Auscultation, Normal Respiratory Effort Cardiovascular: Reports: Regular Rate, Regular Rhythm GI/Abdominal Exam: Normal Bowel Sounds, Soft, Non-Tender Extremities: Normal Inspection, Normal Range of Motion, Non-Tender, No Pedal Edema, Normal Capillary Refill Skin: Reports: Warm, Dry, Intact Neurological: Reports: No New Focal Deficit Psy/Mental Status: Reports: Alert, Normal Affect, Normal Mood
== END 2018-12-17 10:00 | disposition home or self-care (01) ==
LOC: VM.ED 09:27 → VM.MS 10:53
PROVIDERS: ADMIT Physician Assistant; ATTEND Physician Assistant
DX: J44.1 Chronic obstructive pulmonary disease with (acute) exacerbation (principal); Z88.6 Allergy status to analgesic agent
CPT/HCPCS: 36415; 71045; 71046; 80053; 83735; 83880; 84100; 84443; 84484; 85025; 85027; 85610; 86140; 87804; 93005; 94640; 94760; 96361; 96372; 96374; 96375; 96376; 99285; A9270; G0378; J1650; J2405; J2765; J2930; J7120; J7613-GY; J7620-GY

== ENCOUNTER 2020-09-22 17:07 | Inpatient (IN) | payer BC, MEDICARE ==
[2020-09-22] MEDS ORDERED: Sodium Chloride 0.9% 10 ML Syringe FLUSH PRN (17:28)
[2020-09-22] MEDS ORDERED: Albuterol/Ipratropium 3.0-0.5 MG/3 ML Neb Soln NEB ONE (17:30)
[2020-09-22] MEDS ORDERED: Sodium Chloride 0.9% 1,000 ML IV ONE (17:30)
[2020-09-22] MEDS ORDERED: Ondansetron 4 MG/2 ML SDV IVPUSH ONE (17:30)
[2020-09-22] MEDS ORDERED: Dexamethasone 4 MG/ML SDV IVPUSH ONE (17:31)
--- NOTE | 2020-09-22 17:36 | EDM.PDOC ---
ED HPI GENERAL MEDICAL PROBLEM - General Time Seen by Provider: 09/22/20 17:27 Source of Information: Reports: Patient, EMS - History of Present Illness INITIAL COMMENTS - FREE TEXT/NARRATIVE: Hugo is a 65 y/o female who is brought to the ER by [facility] for increased weakness and SOB. She had a +COVID test during an employee screening and she found out that she was positive on Saturday. Since then she has gotten weaker and just overall not feeling well. She reports "It's hard to describe". She has not eaten or drank very much this week. She is coughing. She reported a temp of 104.0 at home and had taken APAP 1gm prior to being transported. EMS crew reported that she required 4 liters of oxygen per nasal cannula to keep her sats in the lower 90s. She had sats in the mid 80s when they arrived to her home. - Related Data Allergies Allergy/AdvReac Type Severity Reaction Status Date / Time aspirin Allergy Shortness Verified 12/15/18 10:25 of breath, eye swelling Home Meds: Home Meds Albuterol Sulfate [Proair Hfa] 2 puff IH QID PRN 12/15/18 [History] Fluticasone Propionate [Flonase] 1 spray NS BID 12/15/18 [History] Fluticasone/Vilanterol [Breo Ellipta 200-25 MCG Inhalation Kit] 1 puff IH DAILY 12/15/18 [History] Albuterol/Ipratropium [DuoNeb 3.0-0.5 MG/3 ML] 3 ml NEB Q4HRRT 1 Days #30 neb 12/17/18 [Rx] Doxycycline [Vibramycin] 100 mg PO BID #20 cap 12/17/18 [Rx] Ondansetron [Zofran ODT] 4 mg PO Q6H PRN 3 Days #10 tab.dis 12/17/18 [Rx] Past Medical History HEENT History: Reports: Sinusitis Cardiovascular History: Reports: High Cholesterol, Hypertension Respiratory History: Reports: Asthma - Past Surgical History Musculoskeletal Surgical History: Reports: Knee Replacement Review of Systems - Review of Systems Review Of Systems: See Below Constitutional: Reports: Fever, Weakness Eyes: Reports: No Symptoms Ears: Reports: No Symptoms Nose: Reports: No Symptoms Mouth/Throat: Reports: No Symptoms Respiratory: Reports: Shortness of Breath, Wheezing, Cough Cardiovascular: Reports: No Symptoms GI/Abdominal: Reports: Decreased Appetite, Nausea Genitourinary: Reports: No Symptoms Musculoskeletal: Reports: No Symptoms Skin: Reports: No Symptoms Neurological: Reports: Weakness Psychiatric: Reports: No Symptoms ED EXAM, GENERAL - Physical Exam Exam: See Below General Appearance: Alert, WD/WN (Elderly female, appears ill.) Eye Exam: Bilateral Eye: PERRL Ears: Normal External Exam, Normal Canal, Hearing Grossly Normal, Normal TMs Nose: Normal Inspection, Normal Mucosa, No Blood Throat/Mouth: Normal Inspection, Normal Lips, Normal Teeth, Normal Voice Head: Atraumatic, Normocephalic Neck: Normal Inspection, Supple Respiratory/Chest: No Respiratory Distress, Lungs Clear, Chest Non-Tender Cardiovascular: Normal Peripheral Pulses, Regular Rate, Rhythm GI/Abdominal: Normal Bowel Sounds, Soft (Female) Exam: Deferred Rectal (Female) Exam: Deferred Extremities: Normal Inspection, Normal Range of Motion, Normal Capillary Refill Neurological: Alert, Oriented, CN II-XII Intact, Normal Cognition, Slow to Respond Skin Exam: Dry, Intact, Normal Color, No Rash, Increased Warmth #1 Interpretation EKG Date: 09/22/20 Time: 17:53 Rhythm: NSR Rate (Beats/Min): 74 [place]: Normal P-Wave: Present QRS: Normal ST-T: Normal QT: Normal Course - Vital Signs Text/Narrative:: 172 The patient was seen by the [facility] on arrival. Labs and CXR ordered. A liter of NS, Zofran 4mg IVP, Decadron 8 mg IVP, and a Duoneb were ordered. 1830 Labs and CXR results reviewed. CBC neg, CMP neg other than AST=38, Lymnykrn=507, Troponin <0.017, D-Dimer=50 CXR=noted patchy opacification of both lungs 1850 Dr Mavis Lockett contacted to admit patient to Acute Care. Patient in agreement with acute admission here in [place]. Patient remained stable until going up to the floor. - Orders/Labs/Meds Orders: Active Orders 24 hr Category Date Time Status EKG Documentation Completion [RC] STAT Care 09/22/20 17:28 Active RT Aerosol Therapy [RC] ASDIRECTED Care 09/22/20 17:30 Active CULTURE BLOOD [BC] Stat Lab 09/22/20 17:20 Received CULTURE BLOOD [BC] Stat Lab 09/22/20 18:29 Received UA RFX JORGE AND CULT IF INDIC [URIN] Stat Lab 09/22/20 17:29 Ordered Sodium Chloride 0.9% [Saline Flush] Med 09/22/20 17:28 Active 10 ml FLUSH ASDIRECTED PRN cefTRIAXone [Rocephin] Med 09/23/20 18:25 Once 1 gm IVPUSH ONETIME ONE Blood Culture x2 Reflex Set [OM.PC] Stat Oth 09/22/20 17:29 Ordered Saline Lock Insert [OM.PC] Stat Oth 09/22/20 17:28 Ordered Medication Orders Ceftriaxone Sodium (Rocephin) 1 gm IVPUSH ONETIME ONE Stop: 09/23/20 18:26 Last Admin: 09/22/20 18:25 Dose: 1 gm Documented by: TOM Sodium Chloride (Saline Flush) 10 ml FLUSH ASDIRECTED PRN PRN Reason: Keep Vein Open Labs: Laboratory Tests 09/22/20 09/22/20 09/22/20 Range/Units 17:20 17: 17:20 WBC 4.6 (4.0-10.0) x10^3/uL RBC 4.86 (4.00-5.50) x10^6/uL Hgb 14.0 (12.0-16.0) g/dL Hct 42.9 (33.0-47.0) % MCV 88.3 D (78.0-93.0) fL MCH 28.8 (26.0-32.0) pg MCHC 32.6 (32.0-36.0) g/dL RDW Coeff of Elan 13.8 (10.0-15.0) % Plt Count 230 (130-400) x10^3/uL Neut % (Auto) 75.7 (50.0-80.0) % Lymph % (Auto) 16.0 L (25.0-50.0) % [place] % (Auto) 7.9 (2.0-11.0) % Eos % (Auto) 0.2 (0.0-4.0) % Baso % (Auto) 0.2 (0.2-1.2) % PT 9.7 (9.5-12.3) SEC INR 0.9 L (2.0-3.5) APTT 26.7 (25.6-32.8) SEC D-Dimer, Quantitative (<=0.58) mg/LFEU Sodium 138 (136-145) mmol/L Potassium 3.8 (3.5-5.1) mmol/L Chloride 101 (98-107) mmol/L Carbon Dioxide 25 (21-32) mmol/L Anion Gap 15.8 (10-20) mmol/L BUN 15 (7-18) mg/dL Creatinine 1.0 (0.55-1.02) mg/dL Est Cr Clr Drug Dosing TNP Estimated GFR (MDRD) 55 Glucose 98 (74-106) mg/dL Lactic Acid (0.4-2.0) mmol/L Calcium 8.5 D (8.5-10.1) mg/dL Corrected Calcium 9.46 (8.5-10.1) mg/dL Magnesium 2.2 (1.8-2.4) mg/dL Ferritin (8-252) ng/mL Total Bilirubin 0.6 (0.2-1.0) mg/dL AST 38 H (15-37) U/L ALT 27 (14-59) U/L Alkaline Phosphatase 83 (46-116) U/L Troponin I < 0.017 (<=0.056) ng/mL Total Protein 7.4 (6.4-8.2) g/dL Albumin 2.8 L (3.4-5.0) g/dL Globulin 4.6 Albumin/Globulin Ratio 0.61 09/22/20 09/22/20 09/22/20 Range/Units 17:20 17:20 17:20 WBC (4.0-10.0) x10^3/uL RBC (4.00-5.50) x10^6/uL Hgb (12.0-16.0) g/dL Hct (33.0-47.0) % MCV (78.0-93.0) fL MCH (26.0-32.0) pg MCHC (32.0-36.0) g/dL RDW Coeff of Elan (10.0-15.0) % Plt Count (130-400) x10^3/uL Neut % (Auto) (50.0-80.0) % Lymph % (Auto) (25.0-50.0) % [place] % (Auto) (2.0-11.0) % Eos % (Auto) (0.0-4.0) % Baso % (Auto) (0.2-1.2) % PT (9.5-12.3) SEC INR (2.0-3.5) APTT (25.6-32.8) SEC D-Dimer, Quantitative 0.50 (<=0.58) mg/LFEU Sodium (136-145) mmol/L Potassium (3.5-5.1) mmol/L Chloride (98-107) mmol/L Carbon Dioxide (21-32) mmol/L Anion Gap (10-20) mmol/L BUN (7-18) mg/dL Creatinine (0.55-1.02) mg/dL Est Cr Clr Drug Dosing Estimated GFR (MDRD) Glucose (74-106) mg/dL Lactic Acid 1.6 (0.4-2.0) mmol/L Calcium (8.5-10.1) mg/dL Corrected Calcium (8.5-10.1) mg/dL Magnesium (1.8-2.4) mg/dL Ferritin 398 H (8-252) ng/mL Total Bilirubin (0.2-1.0) mg/dL AST (15-37) U/L ALT (14-59) U/L Alkaline Phosphatase (46-116) U/L Troponin I (<=0.056) ng/mL Total Protein (6.4-8.2) g/dL Albumin (3.4-5.0) g/dL Globulin Albumin/Globulin Ratio Meds: Medications Generic Name Dose Route Start Last Admin Trade Name Freq PRN Reason Stop Dose Admin Ceftriaxone Sodium 1 gm 09/23/20 18:25 09/22/20 18:25 Rocephin IVPUSH 09/23/20 18:26 1 gm ONETIME ONE Administration Sodium Chloride 10 ml 09/22/20 17:28 Saline Flush FLUSH ASDIRECTED PRN Keep Vein Open Discontinued Medications Generic Name Dose Route Start Last Admin Trade Name Freq PRN Reason Stop Dose Admin Albuterol/Ipratropium 3 ml 09/22/20 17:30 09/22/20 17:44 Duoneb 3.0-0.5 Mg/3 Ml NEB 09/22/20 17:31 3 ml ONETIME ONE Administration Ceftriaxone Sodium Confirm 09/22/20 18:38 09/22/20 18:40 Rocephin Administered 09/22/20 18:39 Not Given Dose 1 gm .ROUTE .STK-MED ONE Dexamethasone 8 mg 09/22/20 17:31 09/22/20 17:44 Decadron IVPUSH 09/22/20 17:32 8 mg ONETIME ONE Administration Sodium Chloride 1,000 mls @ 999 mls/hr 09/22/20 17:30 09/22/20 17:44 Normal Saline IV 09/22/20 18:30 999 mls/hr ONETIME ONE Administration Ondansetron HCl 4 mg 09/22/20 17:30 09/22/20 17:44 Zofran IVPUSH 09/22/20 17:31 4 mg ONETIME ONE Administration - Radiology Interpretation Free Text/Narrative:: XR Chest 1V=scattered patchy opacification in both lungs Departure - Departure Time of Disposition: 18:50 Disposition: DC/Tfer to Acute Hospital 02 Condition: Good Clinical Impression: COVID-19 - Discharge Information Referrals: Tata Landaverde PA-C [Primary Care Provider] - - My Orders Last 24 Hours: My Active Orders 09/22/20 17:20 CULTURE BLOOD [BC] Stat 09/22/20 17:28 EKG Documentation Completion [RC] STAT Sodium Chloride 0.9% [Saline Flush] 10 ml FLUSH ASDIRECTED PRN Saline Lock Insert [OM.PC] Stat 09/22/20 17:29 UA RFX JORGE AND CULT IF INDIC [URIN] Stat Blood Culture x2 Reflex Set [OM.PC] Stat 09/22/20 17:30 RT Aerosol Therapy [RC] ASDIRECTED 09/22/20 18:29 CULTURE BLOOD [BC] Stat 09/23/20 18:25 cefTRIAXone [Rocephin] 1 gm IVPUSH ONETIME ONE - Assessment/Plan Last 24 Hours: My Active Orders 09/22/20 17:20 CULTURE BLOOD [BC] Stat 09/22/20 17:28 EKG Documentation Completion [RC] STAT Sodium Chloride 0.9% [Saline Flush] 10 ml FLUSH ASDIRECTED PRN Saline Lock Insert [OM.PC] Stat 09/22/20 17:29 UA RFX JORGE AND CULT IF INDIC [URIN] Stat Blood Culture x2 Reflex Set [OM.PC] Stat 09/22/20 17:30 RT Aerosol Therapy [RC] ASDIRECTED 09/22/20 18:29 CULTURE BLOOD [BC] Stat 09/23/20 18:25 cefTRIAXone [Rocephin] 1 gm IVPUSH ONETIME ONE
--- NOTE | 2020-09-22 17:59 | CR ---
[id number] RAD/RAD Chest PA or AP 1V EXAM: RAD Chest PA or AP 1V INDICATION: SHORTNESS OF BREATH, POSITIVE COVID. COMPARISON: December 16, 2018. DISCUSSION: Cardiomediastinal silhouette is unchanged from the prior examination. Scattered patchy areas of geographic appearing on masslike parenchymal opacification in both lungs. Findings are nonspecific but commonly most likely pneumonia including sequela of Covid 19. IMPRESSION: As above. Philip Lucio MD 09/22/20 [id number] Thank you for allowing us to participate in the care of your patient.
[2020-09-22 18:04] LABS: PTT,PARTIAL THROMBOPLSTIN TIME 26.7 SEC (25.6-32.8)
[2020-09-22 18:06] LABS: CHLORIDE,CL 101 mmol/L (98-107); SODIUM,NA 138 mmol/L (136-145)
[2020-09-22 18:07] LABS: ANION GAP 15.8 mmol/L (10-20)
[2020-09-22] MEDS: cefTRIAXone 1 GM Vial IVPUSH ONE (18:25)
[2020-09-22] MEDS ORDERED: cefTRIAXone 1 GM Vial ONE (18:38)
[2020-09-22] MEDS ORDERED: Albuterol HFA 18 Gm Inhaler INH PRN (19:37)
--- NOTE | 2020-09-22 19:41 | PCM.HP.2 ---
H&P History of Present Illness - General Date of Service: 09/22/20 Source of Information: Patient History Limitations: Reports: No Limitations - History of Present Illness Initial Comments - Free Text/Narative: Ms. Johnson is a 65 yo female with PMH of hypertension, asthma, chronic sinusitis, nasal polyps, hyperlipidemia, and obesity who presented to the ER for evaluation of worsening generalized weakness over the past 5 days. She started with chills 1 week ago. She had a COVID test done the following day (09/17) that did return positive. Over the next few days, she has experienced generalized weakness, nausea without vomiting, absence of taste/smell, diarrhea, and an intermittent dry cough. No measured fever. She had headaches initially but those are now resolved. No nasal congestion or rhinorrhea. She did call her ENT and was started on doxycycline and prednisone about a week ago. She is not sure how she got COVID but does note that her entire department at work has been diagnosed with COVID. She has not really tried anything at home. She notes that she does not do well when she feels nauseous traditionally and has a hard time keeping up fluids and eating. She did have a syncopal episode 2 days ago but did not sustain any injuries from that. - Related Data Allergies/Adverse Reactions: Allergies Allergy/AdvReac Type Severity Reaction Status Date / Time aspirin Allergy Shortness Verified 09/22/20 19:15 of breath, eye swelling Home Medications: Home Meds Albuterol Sulfate [Proair Hfa] 2 puff IH QID PRN 12/15/18 [History] Fluticasone/Vilanterol [Breo Ellipta 200-25 MCG Inhalation Kit] 1 puff IH DAILY 12/15/18 [History] Albuterol/Ipratropium [DuoNeb 3.0-0.5 MG/3 ML] 3 ml NEB Q4HRRT 1 Days #30 neb 12/17/18 [Rx] Doxycycline [Vibramycin] 100 mg PO BID #20 cap 12/17/18 [Rx] Montelukast [Singulair] 10 mg PO DAILY 09/22/20 [History] hydroCHLOROthiazide [Hydrochlorothiazide] 12.5 mg PO DAILY 09/22/20 [History] Past Medical History HEENT History: Reports: Sinusitis Cardiovascular History: Reports: High Cholesterol, Hypertension Respiratory History: Reports: Asthma Endocrine/Metabolic History: Reports: Obesity/BMI 30+ - Past Surgical History HEENT Surgical History: Reports: Cataract Surgery Female Surgical History: Reports: Tubal Ligation Musculoskeletal Surgical History: Reports: Knee Replacement Social & Family History - Family History Musculoskeletal: Reports: Arthritis - Tobacco Use Tobacco Use Status *Q: Never Tobacco User - Alcohol Use Alcohol Use History: No Alcohol Use in Last Twelve Months: No - Recreational Drug Use Recreational Drug Use: No - Living Situation & Occupation Living situation: Reports: , Alone Occupation: Employed H&P Review of Systems - Review of Systems: Review Of Systems: See Below General: Reports: Chills, Malaise, Weakness. Denies: Fever HEENT: Reports: No Symptoms Pulmonary: Reports: Cough. Denies: Shortness of Breath Cardiovascular: Reports: No Symptoms Gastrointestinal: Reports: Anorexia, Diarrhea, Nausea. Denies: Abdominal Pain, Vomiting Genitourinary: Reports: No Symptoms Musculoskeletal: Reports: No Symptoms Skin: Reports: No Symptoms Psychiatric: Reports: No Symptoms Neurological: Reports: No Symptoms Hematologic/Lymphatic: Reports: No Symptoms Exam - Exam Exam: See Below - Exam General: Alert, Oriented, Cooperative HEENT: Conjunctiva Clear, Mucosa Moist & [place], Pupils Equal, Pupils Reactive Neck: Supple, Trachea Midline. No: Lymphadenopathy, Thyromegaly Lungs: Normal Respiratory Effort, Crackles (both bases) Cardiovascular: Regular Rate, Regular Rhythm, Normal S1, Normal S2 GI/Abdominal Exam: Normal Bowel Sounds, Soft, Non-Tender, No Organomegaly, No Distention, No Mass Extremities: Normal Inspection, Non-Tender, No Pedal Edema, Normal Capillary Refill Peripheral Pulses: 2+: Radial (L), Radial (R) Skin: Warm, Dry, Intact Neuro Extensive - Mental Status: Alert, Oriented x3, Normal Mood/Affect, Normal Cognition - Patient Data Lab Results Last 24 hrs: Laboratory Results - last 24 hr 09/22/20 09/22/20 09/22/20 Range/Units 17:20 17:20 17:20 WBC 4.6 (4.0-10.0) x10^3/uL RBC 4.86 (4.00-5.50) x10^6/uL Hgb 14.0 (12.0-16.0) g/dL Hct 42.9 (33.0-47.0) % MCV 88.3 D (78.0-93.0) fL MCH 28.8 (26.0-32.0) pg MCHC 32.6 (32.0-36.0) g/dL RDW Coeff of Elan 13.8 (10.0-15.0) % Plt Count 230 (130-400) x10^3/uL Neut % (Auto) 75.7 (50.0-80.0) % Lymph % (Auto) 16.0 L (25.0-50.0) % Moffat % (Auto) 7.9 (2.0-11.0) % Eos % (Auto) 0.2 (0.0-4.0) % Baso % (Auto) 0.2 (0.2-1.2) % PT 9.7 (9.5-12.3) SEC INR 0.9 L (2.0-3.5) APTT 26.7 (25.6-32.8) SEC D-Dimer, Quantitative (<=0.58) mg/LFEU Sodium 138 (136-145) mmol/L Potassium 3.8 (3.5-5.1) mmol/L Chloride 101 (98-107) mmol/L Carbon Dioxide 25 (21-32) mmol/L Anion Gap 15.8 (10-20) mmol/L BUN 15 (7-18) mg/dL Creatinine 1.0 (0.55-1.02) mg/dL Est Cr Clr Drug Dosing TNP Estimated GFR (MDRD) 55 Glucose 98 (74-106) mg/dL Lactic Acid (0.4-2.0) mmol/L Calcium 8.5 D (8.5-10.1) mg/dL Corrected Calcium 9.46 (8.5-10.1) mg/dL Magnesium 2.2 (1.8-2.4) mg/dL Ferritin (8-252) ng/mL Total Bilirubin 0.6 (0.2-1.0) mg/dL AST 38 H (15-37) U/L ALT 27 (14-59) U/L Alkaline Phosphatase 83 (46-116) U/L Troponin I < 0.017 (<=0.056) ng/mL Total Protein 7.4 (6.4-8.2) g/dL Albumin 2.8 L (3.4-5.0) g/dL Globulin 4.6 Albumin/Globulin Ratio 0.61 09/22/20 09/22/20 09/22/20 Range/Units 17:20 17:20 17:20 WBC (4.0-10.0) x10^3/uL RBC (4.00-5.50) x10^6/uL Hgb (12.0-16.0) g/dL Hct (33.0-47.0) % MCV (78.0-93.0) fL MCH (26.0-32.0) pg MCHC (32.0-36.0) g/dL RDW Coeff of Elan (10.0-15.0) % Plt Count (130-400) x10^3/uL Neut % (Auto) (50.0-80.0) % Lymph % (Auto) (25.0-50.0) % Moffat % (Auto) (2.0-11.0) % Eos % (Auto) (0.0-4.0) % Baso % (Auto) (0.2-1.2) % PT (9.5-12.3) SEC INR (2.0-3.5) APTT (25.6-32.8) SEC D-Dimer, Quantitative 0.50 (<=0.58) mg/LFEU Sodium (136-145) mmol/L Potassium (3.5-5.1) mmol/L Chloride (98-107) mmol/L Carbon Dioxide (21-32) mmol/L Anion Gap (10-20) mmol/L BUN (7-18) mg/dL Creatinine (0.55-1.02) mg/dL Est Cr Clr Drug Dosing Estimated GFR (MDRD) Glucose (74-106) mg/dL Lactic Acid 1.6 (0.4-2.0) mmol/L Calcium (8.5-10.1) mg/dL Corrected Calcium (8.5-10.1) mg/dL Magnesium (1.8-2.4) mg/dL Ferritin 398 H (8-252) ng/mL Total Bilirubin (0.2-1.0) mg/dL AST (15-37) U/L ALT (14-59) U/L Alkaline Phosphatase (46-116) U/L Troponin I (<=0.056) ng/mL Total Protein (6.4-8.2) g/dL Albumin (3.4-5.0) g/dL Globulin Albumin/Globulin Ratio Result Diagrams: 09/22/20 17:20 09/22/20 17:20 - Problem List (1) COVID-19 SNOMED Code(s): 246025488 ICD Code: U07.1 - COVID-19 Status: Acute Current Visit: Yes (2) Hypoxia SNOMED Code(s): 117085730 ICD Code: R09.02 - HYPOXEMIA Status: Acute Current Visit: Yes (3) Asthma SNOMED Code(s): 300099607 ICD Code: J45.909 - UNSPECIFIED ASTHMA, UNCOMPLICATED Status: Acute Curre nt Visit: Yes Qualifiers: Asthma severity: mild Asthma persistence: intermittent Asthma complication type: with acute exacerbation Qualified Code(s): J45.21 - Mild intermittent asthma with (acute) exacerbation (4) Chronic sinusitis SNOMED Code(s): 09471369 ICD Code: J32.9 - CHRONIC SINUSITIS, UNSPECIFIED Status: Chronic Current Visit: Yes Qualifiers: Sinusitis location: pansinusitis Qualified Code(s): J32.4 - Chronic pansinusitis (5) Hypertension SNOMED Code(s): 33553125 ICD Code: I10 - ESSENTIAL (PRIMARY) HYPERTENSION Status: Chronic Current Visit: Yes Qualifiers: Hypertension type: essential hypertension Qualified Code(s): I10 - Essential (primary) hypertension (6) Hyperlipidemia SNOMED Code(s): 76185153 ICD Code: E78.5 - HYPERLIPIDEMIA, UNSPECIFIED Status: Chronic Current Visit: Yes Qualifiers: Hyperlipidemia type: unspecified Qualified Code(s): E78.5 - Hyperlipidemia, unspecified (7) Obesity SNOMED Code(s): 611048468, 072274207 ICD Code: E66.9 - OBESITY, UNSPECIFIED Status: Chronic Current Visit: Yes Qualifiers: Obesity type: due to excess calories Obesity classification: adult class 2 (BMI 35 - 39.9) Problem List Initiated/Reviewed/Updated: Yes Orders Last 24hrs: Active Orders 24 hr Category Date Time Status EKG Documentation Completion [RC] STAT Care 09/22/20 17:28 Active Notify Provider Vital Signs [RC] ASDIRECTED Care 09/22/20 19:35 Ordered Oxygen Therapy [RC] PRN Care 09/22/20 19:35 Ordered RT Aerosol Therapy [RC] ASDIRECTED Care 09/22/20 17:30 Active Up With Assistance [RC] ASDIRECTED Care 09/22/20 19:34 Ordered VTE/DVT Education [RC] PER UNIT ROUTINE Care 09/22/20 19:35 Ordered Vital Signs [RC] Q4H Care 09/22/20 19:35 Ordered Regular Diet [DIET] Diet 09/22/20 Breakfast Ordered C-REACTIVE PROTEIN [CHEM] Routine Lab 09/23/20 05:11 Ordered CBC WITH AUTO DIFF [HEME] AM Lab 09/23/20 05:11 Ordered COMPREHENSIVE METABOLIC PN,CMP [CHEM] AM Lab 09/23/20 05:11 Ordered CULTURE BLOOD [BC] Stat Lab 09/22/20 17:20 Received CULTURE BLOOD [BC] Stat Lab 09/22/20 18:29 Received FERRITIN [CHEM] Routine Lab 09/23/20 05:11 Ordered LACTATE DEHYDROGENASE,LDH [CHEM] Routine Lab 09/23/20 05:11 Ordered UA RFX JORGE AND CULT IF INDIC [URIN] Stat Lab 09/22/20 17:29 Ordered Acetaminophen [TylenoL] Med 09/22/20 19:34 Ordered 650 mg PO Q4H PRN Albuterol [Ventolin HFA] Med 09/22/20 19:37 Ordered See Dose Instructions INH Q4H PRN Ascorbic Acid [Vitamin C] Med 09/22/20 20:00 Ordered 1,000 mg PO BID Cholecalciferol (Vitamin D3) [Vitamin D3] Med 09/23/20 08:00 Ordered 25 mcg PO DAILY Enoxaparin [Lovenox] Med 09/23/20 08:00 Ordered 40 mg SUBCUT DAILY Sodium Chloride 0.9% [Saline Flush] Med 09/22/20 17:28 Active 10 ml FLUSH ASDIRECTED PRN Zinc Gluconate [Zinc] Med 09/23/20 08:00 Ordered 200 mg PO DAILY cefTRIAXone [Rocephin] Med 09/23/20 18:25 Once 1 gm IVPUSH ONETIME ONE dexAMETHasone 6 MG Med 09/23/20 08:00 Ordered 6 mg PO DAILY Blood Culture x2 Reflex Set [OM.PC] Stat Oth 09/22/20 17:29 Ordered Saline Lock Insert [OM.PC] Stat Oth 11/26/20 17:28 Ordered Medication Orders Acetaminophen (Tylenol) 650 mg PO Q4H PRN PRN Reason: Pain (Mild 1-3)/fever Albuterol (Ventolin Hfa) 0 gm INH Q4H PRN PRN Reason: Shortness of Breath Ascorbic Acid (Vitamin C) 1,000 mg PO BID JOAQUIN Ceftriaxone Sodium (Rocephin) 1 gm IVPUSH ONETIME ONE Stop: 09/23/20 18:26 Last Admin: 09/22/20 18:25 Dose: 1 gm Documented by: TOM Cholecalciferol (Vitamin D3) 25 mcg PO DAILY [facility] Dexamethasone 2 mg/ (Dexamethasone 4 mg) 6 mg PO DAILY [facility] Enoxaparin Sodium (Lovenox) 40 mg SUBCUT DAILY [facility] Sodium Chloride (Saline Flush) 10 ml FLUSH ASDIRECTED PRN PRN Reason: Keep Vein Open Zinc Gluconate (Zinc) 200 mg PO DAILY JOAQUIN Assessment/Plan Comment:: 65 yo female admitted with acute hypoxic respiratory failure secondary to COVID- 19. #1 COVID-19 #2 Hypoxia - Patient does have changes noted on her x-ray but really is not having respiratory symptoms. - Main symptom is her generalized weakness and anorexia. - She is on 2L of oxygen but was only briefly <90% so it is unclear if this is t gini needed. - Will hold off on remdesivir tonight and reassess in the am. - Will continue dexamethasone at a dose of 6 mg daily. Hold prednisone she was on previously. - Will also have her on vitamin C, vitamin D, and zinc. - Labs are excellent. Therefore, will hold off on further fluids overnight and see how she tolerates this initial liter. - In light of her normal WBC, there is no indication for any antibiotics aside from those continued from outpatient as below. #3 Asthma with acute exacerbation - Since she is not in a negative pressure room, will start with albuterol inhaler instead of nebulizer. If need be, we can certainly reassess with appropriate precautions. - Hold breo given she will be on systemic steroids. - Dexamethasone as above. #4 Chronic Sinusitis - Continue doxycycline. - Hold prednisone as we are doing dexamethasone instead. #5 Hypertension #6 Hyperlipidemia #7 Obesity - All stable chronic conditions. - Home medications continued. Patient will be admitted to acute given new onset hypoxia and anticipation it will take more than 2 nights to wean her back off of this. See detailed plans as above. Code status is full - discussed on admission. Lovenox for VTE prophylaxis.
[2020-09-22] MEDS: Ascorbic Acid 500 MG Tab PO SCH (20:31)
[2020-09-22] MEDS: Acetaminophen 325 MG Tab PO PRN (20:31)
[2020-09-23 07:50] LABS: PTT,PARTIAL THROMBOPLSTIN TIME 25.9 SEC (25.6-32.8)
[2020-09-23 07:56] LABS: CHLORIDE,CL 104 mmol/L (98-107); SODIUM,NA 140 mmol/L (136-145)
[2020-09-23 08:00] LABS: ANION GAP 15.1 mmol/L (10-20)
[2020-09-23] MEDS: Montelukast 10 MG Tab PO SCH (08:34)
[2020-09-23] MEDS: Zinc (Zinc Gluconate) 50 MG Tab PO SCH (08:34)
[2020-09-23] MEDS: Ascorbic Acid 500 MG Tab PO SCH ×2 (08:34→20:51)
[2020-09-23] MEDS: Enoxaparin 40 MG/0.4 ML Syringe SUBCUT SCH (08:34)
[2020-09-23] MEDS: dexAMETHasone 2 MG, dexAMETHasone 4 MG PO SCH ×2 (08:35)
[2020-09-23] MEDS: Hydrochlorothiazide 25 MG Tab PO SCH (08:35)
[2020-09-23] MEDS: Cholecalciferol (Vitamin D3) 25 MCG Tab PO SCH (08:35)
[2020-09-23] MEDS ORDERED: Sodium Chloride 0.9% 1,000 ML IV SCH (09:00)
--- NOTE | 2020-09-23 09:02 | PCM.PN ---
- General Info Date of Service: 09/23/20 Subjective Update: 65 yo female hospital day #2 admitted with pneumonia secondary to COVID-19. She states she is feeling better today. She is still weak but less so than yesterday. She states that she slept well. She still feels nauseous and does not really want to eat much. No vomiting or diarrhea. She is coughing when she gets up and moves around. No shortness of breath or chest pain. No fever or chills. She is wondering about getting more IV fluids today. - Review of Systems General: Reports: Weakness, Fatigue, Malaise. Denies: Fever, Chills HEENT: Reports: No Symptoms Pulmonary: Reports: Cough. Denies: Shortness of Breath Cardiovascular: Reports: No Symptoms Gastrointestinal: Reports: Decreased Appetite, Nausea. Denies: Diarrhea, Vomiting Genitourinary: Reports: No Symptoms Musculoskeletal: Reports: No Symptoms Skin: Reports: No Symptoms Neurological: Reports: No Symptoms - Patient Data Vitals - Most Recent: Last Vital Signs Temp 36.4 C 09/23/20 06:00 Pulse 54 L 09/23/20 06:00 Resp 18 09/23/20 06:00 BP 123/63 09/23/20 06:00 Pulse Ox 94 L 09/23/20 06:00 Weight - Most Recent: 90.718 kg I&O - Last 24 Hours: Intake & Output 09/22/20 09/23/20 09/23/20 22:59 06:59 14:59 Intake Total 240 Output Total 200 Balance 40 Lab Results Last 24 Hours: Laboratory Results - last 24 hr 09/22/20 09/22/20 09/22/20 Range/Units 17:20 17:20 17:20 WBC 4.6 (4.0-10.0) x10^3/uL RBC 4.86 (4.00-5.50) x10^6/uL Hgb 14.0 (12.0-16.0) g/dL Hct 42.9 (33.0-47.0) % MCV 88.3 D (78.0-93.0) fL MCH 28.8 (26.0-32.0) pg MCHC 32.6 (32.0-36.0) g/dL RDW Coeff of Elan 13.8 (10.0-15.0) % Plt Count 230 (130-400) x10^3/uL Neut % (Auto) 75.7 (50.0-80.0) % Lymph % (Auto) 16.0 L (25.0-50.0) % [place] % (Auto) 7.9 (2.0-11.0) % Eos % (Auto) 0.2 (0.0-4.0) % Baso % (Auto) 0.2 (0.2-1.2) % PT 9.7 (9.5-12.3) SEC INR 0.9 L (2.0-3.5) APTT 26.7 (25.6-32.8) SEC D-Dimer, Quantitative (<=0.58) mg/LFEU Sodium 138 (136-145) mmol/L Potassium 3.8 (3.5-5.1) mmol/L Chloride 101 (98-107) mmol/L Carbon Dioxide 25 (21-32) mmol/L Anion Gap 15.8 (10-20) mmol/L BUN 15 (7-18) mg/dL Creatinine 1.0 (0.55-1.02) mg/dL Est Cr Clr Drug Dosing TNP Estimated GFR (MDRD) 55 Glucose 98 (74-106) mg/dL Lactic Acid (0.4-2.0) mmol/L Calcium 8.5 D (8.5-10.1) mg/dL Corrected Calcium 9.46 (8.5-10.1) mg/dL Magnesium 2.2 (1.8-2.4) mg/dL Ferritin (8-252) ng/mL Total Bilirubin 0.6 (0.2-1.0) mg/dL AST 38 H (15-37) U/L ALT 27 (14-59) U/L Alkaline Phosphatase 83 (46-116) U/L Lactate Dehydrogenase (81-234) U/L Troponin I < 0.017 (<=0.056) ng/mL C-Reactive Protein (<=0.9) mg/dL Total Protein 7.4 (6.4-8.2) g/dL Albumin 2.8 L (3.4-5.0) g/dL Globulin 4.6 Albumin/Globulin Ratio 0.61 09/22/20 09/22/20 09/22/20 Range/Units 17:20 17:20 17:20 WBC (4.0-10.0) x10^3/uL RBC (4.00-5.50) x10^6/uL Hgb (12.0-16.0) g/dL Hct (33.0-47.0) % MCV (78.0-93.0) fL MCH (26.0-32.0) pg MCHC (32.0-36.0) g/dL RDW Coeff of Elan (10.0-15.0) % Plt Count (130-400) x10^3/uL Neut % (Auto) (50.0-80.0) % Lymph % (Auto) (25.0-50.0) % [place] % (Auto) (2.0-11.0) % Eos % (Auto) (0.0-4.0) % Baso % (Auto) (0.2-1.2) % PT (9.5-12.3) SEC INR (2.0-3.5) APTT (25.6-32.8) SEC D-Dimer, Quantitative 0.50 (<=0.58) mg/LFEU Sodium (136-145) mmol/L Potassium (3.5-5.1) mmol/L Chloride (98-107) mmol/L Carbon Dioxide (21-32) mmol/L Anion Gap (10-20) mmol/L BUN (7-18) mg/dL Creatinine (0.55-1.02) mg/dL Est Cr Clr Drug Dosing Estimated GFR (MDRD) Glucose (74-106) mg/dL Lactic Acid 1.6 (0.4-2.0) mmol/L Calcium (8.5-10.1) mg/dL Corrected Calcium (8.5-10.1) mg/dL Magnesium (1.8-2.4) mg/dL Ferritin 398 H (8-252) ng/mL Total Bilirubin (0.2-1.0) mg/dL AST (15-37) U/L ALT (14-59) U/L Alkaline Phosphatase (46-116) U/L Lactate Dehydrogenase (81-234) U/L Troponin I (<=0.056) ng/mL C-Reactive Protein (<=0.9) mg/dL Total Protein (6.4-8.2) g/dL Albumin (3.4-5.0) g/dL Globulin Albumin/Globulin Ratio 09/23/20 09/23/20 09/23/20 Range/Units 07:22 07:22 07:22 WBC 2.1 L (4.0-10.0) x10^3/uL RBC 4.63 (4.00-5.50) x10^6/uL Hgb 13.3 (12.0-16.0) g/dL Hct 41.2 (33.0-47.0) % MCV 89.0 (78.0-93.0) fL MCH 28.7 (26.0-32.0) pg MCHC 32.3 (32.0-36.0) g/dL RDW Coeff of Elan 13.7 (10.0-15.0) % Plt Count 223 (130-400) x10^3/uL Neut % (Auto) 62.3 (50.0-80.0) % Lymph % (Auto) 25.1 (25.0-50.0) % [place] % (Auto) 12.1 H (2.0-11.0) % Eos % (Auto) 0.0 (0.0-4.0) % Baso % (Auto) 0.5 (0.2-1.2) % PT (9.5-12.3) SEC INR (2.0-3.5) APTT (25.6-32.8) SEC D-Dimer, Quantitative (<=0.58) mg/LFEU Sodium 140 (136-145) mmol/L Potassium 4.1 (3.5-5.1) mmol/L Chloride 104 (98-107) mmol/L Carbon Dioxide 25 (21-32) mmol/L Anion Gap 15.1 (10-20) mmol/L BUN 17 (7-18) mg/dL Creatinine 0.9 (0.55-1.02) mg/dL Est Cr Clr Drug Dosing 44.17 Estimated GFR (MDRD) > 60 Glucose 126 H (74-106) mg/dL Lactic Acid (0.4-2.0) mmol/L Calcium 8.4 L (8.5-10.1) mg/dL Corrected Calcium 9.60 (8.5-10.1) mg/dL Magnesium (1.8-2.4) mg/dL Ferritin 360 H (8-252) ng/mL Total Bilirubin 0.4 (0.2-1.0) mg/dL AST 41 H (15-37) U/L ALT 32 (14-59) U/L Alkaline Phosphatase 91 (46-116) U/L Lactate Dehydrogenase 327 H (81-234) U/L Troponin I (<=0.056) ng/mL C-Reactive Protein 6.3 H (<=0.9) mg/dL Total Protein 6.7 (6.4-8.2) g/dL Albumin 2.5 L (3.4-5.0) g/dL Globulin 4.2 Albumin/Globulin Ratio 0.60 09/23/ Range/Units 07:22 WBC (4.0-10.0) x10^3/uL RBC (4.00-5.50) x10^6/uL Hgb (12.0-16.0) g/dL Hct (33.0-47.0) % MCV (78.0-93.0) fL MCH (26.0-32.0) pg MCHC (32.0-36.0) g/dL RDW Coeff of Elan (10.0-15.0) % Plt Count (130-400) x10^3/uL Neut % (Auto) (50.0-80.0) % Lymph % (Auto) (25.0-50.0) % [place] % (Auto) (2.0-11.0) % Eos % (Auto) (0.0-4.0) % Baso % (Auto) (0.2-1.2) % PT 9.5 (9.5-12.3) SEC INR 0.9 L (2.0-3.5) APTT 25.9 (25.6-32.8) SEC D-Dimer, Quantitative (<=0.58) mg/LFEU Sodium (136-145) mmol/L Potassium (3.5-5.1) mmol/L Chloride (98-107) mmol/L Carbon Dioxide (21-32) mmol/L Anion Gap (10-20) mmol/L BUN (7-18) mg/dL Creatinine (0.55-1.02) mg/dL Est Cr Clr Drug Dosing Estimated GFR (MDRD) Glucose (74-106) mg/dL Lactic Acid (0.4-2.0) mmol/L Calcium (8.5-10.1) mg/dL Corrected Calcium (8.5-10.1) mg/dL Magnesium (1.8-2.4) mg/dL Ferritin (8-252) ng/mL Total Bilirubin (0.2-1.0) mg/dL AST (15-37) U/L ALT (14-59) U/L Alkaline Phosphatase (46-116) U/L Lactate Dehydrogenase (81-234) U/L Troponin I (<=0.056) ng/mL C-Reactive Protein (<=0.9) mg/dL Total Protein (6.4-8.2) g/dL Albumin (3.4-5.0) g/dL Globulin Albumin/Globulin Ratio Med Orders - Current: Current Medications Acetaminophen (Tylenol) 650 mg PO Q4H PRN PRN Reason: Pain (Mild 1-3)/fever Last Admin: 09/22/20 20:31 Dose: 650 mg Documented by: Albuterol (Ventolin Hfa) 0 gm INH Q4H PRN PRN Reason: Shortness of Breath Ascorbic Acid (Vitamin C) 1,000 mg PO BID [facility] Last Admin: 09/23/20 08:34 Dose: 1,000 mg Documented by: Ceftriaxone Sodium (Rocephin) 1 gm IVPUSH ONETIME ONE Stop: 09/23/20 18:26 Last Admin: 09/22/20 18:25 Dose: 1 gm Documented by: Cholecalciferol (Vitamin D3) 25 mcg PO DAILY [facility] Last Admin: 09/23/20 08:35 Dose: 25 mcg Documented by: Dexamethasone 2 mg/ (Dexamethasone 4 mg) 6 mg PO DAILY [facility] Last Admin: 09/23/20 08:35 Dose: 6 mg Documented by: Doxycycline Hyclate (Vibramycin) 100 mg PO BID [facility] Stop: 09/25/20 20:01 Enoxaparin Sodium (Lovenox) 40 mg SUBCUT DAILY [facility] Last Admin: 09/23/20 08:34 Dose: 40 mg Documented by: Hydrochlorothiazide (Hydrochlorothiazide) 12.5 mg PO DAILY [facility] Last Admin: 09/23/20 08:35 Dose: 12.5 mg Documented by: Sodium Chloride (Normal Saline) 1,000 mls @ 50 mls/hr IV ASDIRECTED [facility] Stop: 09/24/20 05:01 Montelukast Sodium (Singulair) 10 mg PO DAILY [facility] Last Admin: 09/23/20 08:34 Dose: 10 mg Documented by: Sodium Chloride (Saline Flush) 10 ml FLUSH ASDIRECTED PRN PRN Reason: Keep Vein Open Zinc Gluconate (Zinc) 200 mg PO DAILY [facility] Last Admin: 09/23/20 08:34 Dose: 200 mg Documented by: Discontinued Medications Albuterol/Ipratropium (Duoneb 3.0-0.5 Mg/3 Ml) 3 ml NEB ONETIME ONE Stop: 09/22/20 17:31 Last Admin: 09/22/20 17:44 Dose: 3 ml Documented by: Ceftriaxone Sodium (Rocephin) Confirm Administered Dose 1 gm .ROUTE .STK-MED ONE Stop: 09/22/20 18:39 Last Admin: 09/22/20 18:40 Dose: Not Given Documented by: Dexamethasone (Decadron) 8 mg IVPUSH ONETIME ONE Stop: 09/22/20 17:32 Last Admin: 09/22/20 17:44 Dose: 8 mg Documented by: Sodium Chloride (Normal Saline) 1,000 mls @ 999 mls/hr IV ONETIME ONE Stop: 09/22/20 18:30 Last Admin: 09/22/20 17:44 Dose: 999 mls/hr Documented by: Ondansetron HCl (Zofran) 4 mg IVPUSH ONETIME ONE Stop: 09/22/20 17:31 Last Admin: 09/22/20 17:44 Dose: 4 mg Documented by: - Exam General: Alert, Oriented, Cooperative, No Acute Distress HEENT: Mucous Membr. Moist/[place] Neck: Supple, Trachea Midline, No Thyromegaly Lungs: Normal Respiratory Effort, Crackles (bilateral lower lobes) Cardiovascular: Regular Rate, Regular Rhythm, No Murmurs GI/Abdominal Exam: Normal Bowel Sounds, Soft, Non-Tender, No Organomegaly, No Distention, No Mass Extremities: Non-Tender, No Pedal Edema, Normal Capillary Refill Peripheral Pulses: 2+: Radial (L), Radial (R) Skin: Warm, Dry, Intact Sepsis Event Note - Evaluation Sepsis Screening Result: No Definite Risk - Focused Exam Vital Signs: Vital Signs Temp Pulse Resp BP Pulse Ox 09/23/20 06:00 36.4 C 54 L 18 123/63 94 L 09/23/20 01:52 36.6 C 57 L 18 119/61 95 09/22/20 22:00 36.2 C 65 17 119/69 91 L - Problem List & Annotations (1) COVID-19 SNOMED Code(s): 856806339 Code(s): U07.1 - COVID-19 Status: Acute Current Visit: Yes (2) Hypoxia SNOMED Code(s): 703127618 Code(s): R09.02 - HYPOXEMIA Status: Acute Current Visit: Yes (3) Asthma SNOMED Code(s): 223221788 Code(s): J45.909 - UNSPECIFIED ASTHMA, UNCOMPLICATED Status: Acute Current Visit: Yes Qualifiers: Asthma severity: mild Asthma persistence: intermittent Asthma complication type: with acute exacerbation Qualified Code(s): J45.21 - Mild intermittent asthma with (acute) exacerbation (4) Chronic sinusitis SNOMED Code(s): 93090654 Code(s): J32.9 - CHRONIC SINUSITIS, UNSPECIFIED Status: Chronic Current Visit: Yes Qualifiers: Sinusitis location: pansinusitis Qualified Code(s): J32.4 - Chronic pansinusitis (5) Hypertension SNOMED Code(s): 31911568 Code(s): I10 - ESSENTIAL (PRIMARY) HYPERTENSION Status: Chronic Current Visit: Yes Qualifiers: Hypertension type: essential hypertension Qualified Code(s): I10 - Essential (primary) hypertension (6) Hyperlipidemia SNOMED Code(s): 03629037 Code(s): E78.5 - HYPERLIPIDEMIA, UNSPECIFIED Status: Chronic Current Visit: Yes Qualifiers: Hyperlipidemia type: unspecified Qualified Code(s): E78.5 - Hyperlipidemia, unspecified (7) Obesity SNOMED Code(s): 037580989, 339072941 Code(s): E66.9 - OBESITY, UNSPECIFIED Status: Chronic Current Visit: Yes Qualifiers: Obesity type: due to excess calories Obesity classification: adult class 2 (BMI 35 - 39.9) - Problem List Review Problem List Initiated/Reviewed/Updated: Yes - My Orders Last 24 Hours: My Active Orders 09/22/20 19:34 Up With Assistance [RC] 08,20 Acetaminophen [TylenoL] 650 mg PO Q4H PRN 09/22/20 19:35 Notify Provider Vital Signs [RC] 06,10,14,18,22,02 Oxygen Therapy [RC] PRN VTE/DVT Education [RC] .PRN Vital Signs [RC] 06,10,14,18,,02 09/22/20 19:37 Albuterol [Ventolin HFA] See Dose Instructions INH Q4H PRN 09/22/20 20:00 Ascorbic Acid [Vitamin C] 1,000 mg PO BID 09/22/20 20:02 Resuscitation Status Routine 09/22/20 20:03 Dietary Supplements [RC] ,09/22/20 20:07 Admission Status [Patient Status] [ADT] Routine 09/23/20 08:00 Cholecalciferol (Vitamin D3) [Vitamin D3] 25 mcg PO DAILY Enoxaparin [Lovenox] 40 mg SUBCUT DAILY Montelukast [Singulair] 10 mg PO DAILY Zinc Gluconate [Zinc] 200 mg PO DAILY dexAMETHasone 6 MG 6 mg PO DAILY hydroCHLOROthiazide 12.5 mg PO DAILY 09/23/20 09:00 Sodium Chloride 0.9% @ 50 MLS/HR(1000ml) Sodium Chloride 0.9% [Normal Saline] 1,000 ml IV ASDIRECTED 09/23/20 20:03 Doxycycline [Vibramycin] 100 mg PO BID - Assessment Assessment:: 65 yo female admitted with COVID-19 pneumonia. Is feeling somewhat better today but still very weak without much appetite. Labs are stable/normal. - Plan Plan:: #1 COVID-19 #2 Hypoxia - Patient does have changes noted on her x-ray but is having mild respiratory symptoms. - Is intermittently on oxygen but not consistently requiring this. - Main symptom is her generalized weakness and anorexia. - Will do gentle IV fluids throughout today and tonight. Note fluid sensitive nature of COVID but agree this would benefit her given significantly low oral intake at this point. - Continue dexamethasone. - No indication for remdesivir. Will reassess daily. - Continue vitamin C, vitamin D, and zinc. - Zofran ordered for nausea. #3 Asthma with acute exacerbation - Continue albuterol inhaler PRN. - Hold breo given she will be on systemic steroids. - Dexamethasone as above. #4 Chronic Sinusitis - Continue doxycycline. - Hold prednisone as we are doing dexamethasone instead. #5 Hypertension #6 Hyperlipidemia #7 Obesity - All stable chronic conditions. - Home medications continued. Patient will remain on acute today - will continue to wean oxygen and will do additional gentle IV fluids today. Anticipate d/c home tomorrow or Saturday. See detailed plans as above. Code status is full - discussed on admission. Lovenox for VTE prophylaxis.
[2020-09-23] MEDS: Acetaminophen 325 MG Tab PO PRN ×2 (14:44→20:52)
[2020-09-23] MEDS: cefTRIAXone 1 GM Vial IVPUSH ONE (18:01)
[2020-09-23] MEDS: Doxycycline 100 MG Cap PO SCH (20:51)
[2020-09-24] MEDS: Doxycycline 100 MG Cap PO SCH ×2 (07:36→20:49)
[2020-09-24] MEDS: Enoxaparin 40 MG/0.4 ML Syringe SUBCUT SCH (07:36)
[2020-09-24] MEDS: Montelukast 10 MG Tab PO SCH (07:37)
[2020-09-24] MEDS: dexAMETHasone 2 MG, dexAMETHasone 4 MG PO SCH ×2 (07:37)
[2020-09-24] MEDS: Zinc (Zinc Gluconate) 50 MG Tab PO SCH (07:37)
[2020-09-24] MEDS: Hydrochlorothiazide 25 MG Tab PO SCH (07:37)
[2020-09-24] MEDS: Ascorbic Acid 500 MG Tab PO SCH ×2 (07:38→20:49)
[2020-09-24] MEDS: Cholecalciferol (Vitamin D3) 25 MCG Tab PO SCH (07:39)
[2020-09-24 08:31] LABS: ANION GAP 16.7 mmol/L (10-20)
[2020-09-24] MEDS ORDERED: Ondansetron 4 MG/2 ML SDV IVPUSH PRN (09:53)
--- NOTE | 2020-09-24 13:17 | PCM.PN ---
- General Info Date of Service: 09/24/20 Subjective Update: 65 yo female hospital day #3 admitted with acute hypoxic respiratory failure secondary to COVID-19. Patient states she still does not feel much better. She is still generally weak and is not wanting to eat or drink much. She is also still severely fatigued. John french has had more nausea again today and did have 1 episode of emesis. No abdominal pain or diarrhea. She still has the cough and some shortness of breath when she gets up and moves around; this is no better or worse since admission. No fever or chills. - Review of Systems General: Reports: Weakness, Fatigue, Malaise. Denies: Fever, Chills HEENT: Reports: No Symptoms Pulmonary: Reports: Shortness of Breath, Cough Cardiovascular: Reports: No Symptoms Gastrointestinal: Reports: Nausea, Vomiting. Denies: Abdominal Pain, Diarrhea Genitourinary: Reports: No Symptoms Musculoskeletal: Reports: No Symptoms Skin: Reports: No Symptoms Neurological: Reports: No Symptoms - Patient Data Vitals - Most Recent: Last Vital Signs Temp 36.8 C 09/24/20 10:00 Pulse 70 09/24/20 10:00 Resp 18 09/24/20 10:00 BP 124/71 09/24/20 10:00 Pulse Ox 92 L 09/24/20 10:00 Weight - Most Recent: 90.718 kg I&O - Last 24 Hours: Intake & Output 09/23/20 09/24/20 09/24/20 22:59 06:59 14:59 Intake Total 180 Output Total 400 0 Balance -220 0 Lab Results Last 24 Hours: Laboratory Results - last 24 hr 09/24/20 09/24/20 09/24/20 Range/Units 08:00 08:00 08:00 WBC 10.6 H (4.0-10.0) x10^3/uL RBC 4.79 (4.00-5.50) x10^6/uL Hgb 13.6 (12.0-16.0) g/dL Hct 43.0 (33.0-47.0) % MCV 89.8 (78.0-93.0) fL MCH 28.4 (26.0-32.0) pg MCHC 31.6 L (32.0-36.0) g/dL RDW Coeff of Elan 13.8 (10.0-15.0) % Plt Count 255 (130-400) x10^3/uL Add Manual Diff Yes Neutrophils % (Manual) 80 (50-80) % Band Neutrophils % 5 (0-6) % Lymphocytes % (Manual) 3 L (25-50) % Reactive Lymphs % 9 H (0) % Monocytes % (Manual) 3 (2-11) % Vacuolated Monocytes 1+ slight H Toxic Granulation 1+ slight H Platelet Estimate Adequate Giant Platelets Rare H Hypochromasia 1+ slight H Sodium 142 (136-145) mmol/L Potassium 3.7 (3.5-5.1) mmol/L Chloride 103 (98-107) mmol/L Carbon Dioxide 26 (21-32) mmol/L Anion Gap 16.7 (10-20) mmol/L BUN 19 H (7-18) mg/dL Creatinine 1.2 H (0.55-1.02) mg/dL Est Cr Clr Drug Dosing 33.12 mL/min Estimated GFR (MDRD) 45 Glucose 115 H (74-106) mg/dL Calcium 8.9 (8.5-10.1) mg/dL Ferritin 331 H (8-252) ng/mL Lactate Dehydrogenase 379 H (81-234) U/L C-Reactive Protein 4.4 H (<=0.9) mg/dL Shadi Results Last 24 Hours: Microbiology 09/22/20 18:29 Aerobic Blood Culture - Preliminary Blood - Venous - Lab Draw NO GROWTH AFTER 1 DAY Anaerobic Blood Culture - Preliminary NO GROWTH AFTER 1 DAY 09/22/20 17:20 Aerobic Blood Culture - Preliminary Blood - Venous NO GROWTH AFTER 1 DAY Anaerobic Blood Culture - Preliminary NO GROWTH AFTER 1 DAY Med Orders - Current: Current Medications Acetaminophen (Tylenol) 650 mg PO Q4H PRN PRN Reason: Pain (Mild 1-3)/fever Last Admin: 09/23/20 20:52 Dose: 650 mg Documented by: Albuterol (Ventolin Hfa) 0 gm INH Q4H PRN PRN Reason: Shortness of Breath Last Admin: 09/24/20 02:13 Dose: 2 puff Documented by: Ascorbic Acid (Vitamin C) 1,000 mg PO BID [facility] Last Admin: 09/24/20 07:38 Dose: 1,000 mg Documented by: Cholecalciferol (Vitamin D3) 25 mcg PO DAILY [facility] Last Admin: 09/24/20 07:39 Dose: 25 mcg Documented by: Dexamethasone 2 mg/ (Dexamethasone 4 mg) 6 mg PO DAILY [facility] Last Admin: 09/24/20 07:37 Dose: 6 mg Documented by: Doxycycline Hyclate (Vibramycin) 100 mg PO BID [facility] Stop: 09/25/20 20:01 Last Admin: 09/24/20 07:36 Dose: 100 mg Documented by: Enoxaparin Sodium (Lovenox) 40 mg SUBCUT DAILY [facility] Last Admin: 09/24/20 07:36 Dose: 40 mg Documented by: Hydrochlorothiazide (Hydrochlorothiazide) 12.5 mg PO DAILY [facility] Last Admin: 09/24/20 07:37 Dose: 12.5 mg Documented by: Montelukast Sodium (Singulair) 10 mg PO DAILY [facility] Last Admin: 09/24/20 07:37 Dose: 10 mg Documented by: Ondansetron HCl (Zofran) 4 mg IVPUSH Q8H PRN PRN Reason: Nausea Last Admin: 09/24/20 13:13 Dose: 4 mg Documented by: Sodium Chloride (Saline Flush) 10 ml FLUSH ASDIRECTED PRN PRN Reason: Keep Vein Open Zinc Gluconate (Zinc) 200 mg PO DAILY [facility] Last Admin: 09/24/20 07:37 Dose: 200 mg Documented by: Discontinued Medications Albuterol/Ipratropium (Duoneb 3.0-0.5 Mg/3 Ml) 3 ml NEB ONETIME ONE Stop: 09/22/20 17:31 Last Admin: 09/22/20 17:44 Dose: 3 ml Documented by: Ceftriaxone Sodium (Rocephin) 1 gm IVPUSH ONETIME ONE Stop: 09/23/20 18:26 Last Admin: 09/23/20 18:01 Dose: 1 gm Documented by: Ceftriaxone Sodium (Rocephin) Confirm Administered Dose 1 gm .ROUTE .STK-MED ONE Stop: 09/22/20 18:39 Last Admin: 09/22/20 18:40 Dose: Not Given Documented by: Dexamethasone (Decadron) 8 mg IVPUSH ONETIME ONE Stop: 09/22/20 17:32 Last Admin: 09/22/20 17:44 Dose: 8 mg Documented by: Sodium Chloride (Normal Saline) 1,000 mls @ 999 mls/hr IV ONETIME ONE Stop: 09/22/20 18:30 Last Admin: 09/22/20 17:44 Dose: 999 mls/hr Documented by: Sodium Chloride (Normal Saline) 1,000 mls @ 50 mls/hr IV ASDIRECTED [facility]IN Stop: 09/24/20 05:01 Last Admin: 09/24/20 07:36 Dose: 50 mls/hr Documented by: Ondansetron HCl (Zofran) 4 mg IVPUSH ONETIME ONE Stop: 09/22/20 17:31 Last Admin: 09/22/20 17:44 Dose: 4 mg Documented by: - Exam General: Alert, Oriented, Cooperative, No Acute Distress HEENT: Pupils Equal, Pupils Reactive, Mucous Membr. Moist/[place] Neck: Supple, Trachea Midline, No Thyromegaly. No: Lymphadenopathy Lungs: Clear to Auscultation, Normal Respiratory Effort Cardiovascular: Regular Rate, Regular Rhythm, No Murmurs GI/Abdominal Exam: Normal Bowel Sounds, Soft, Non-Tender, No Organomegaly, No Distention, No Mass Extremities: Normal Inspection, Non-Tender, No Pedal Edema, Normal Capillary Refill Peripheral Pulses: 2+: Radial (L), Radial (R) Skin: Warm, Dry, Intact Neurological: No New Focal Deficit Sepsis Event Note - Evaluation Sepsis Screening Result: No Definite Risk - Focused Exam Vital Signs: Vital Signs Temp Pulse Resp BP Pulse Ox 09/24/20 10:00 36.8 C 70 18 124/71 92 L 09/24/20 05:11 36.2 C 65 18 126/69 95 09/24/20 02:00 36.4 C 60 16 120/66 90 L - Problem List & Annotations (1) COVID-19 SNOMED Code(s): 253418782 Code(s): U07.1 - COVID-19 Status: Acute Current Visit: Yes (2) Hypoxia SNOMED Code(s): 076367294 Code(s): R09.02 - HYPOXEMIA Status: Acute Current Visit: Yes (3) Asthma SNOMED Code(s): 847652369 Code(s): J45.909 - UNSPECIFIED ASTHMA, UNCOMPLICATED Status: Acute Current Visit: Yes Qualifiers: Asthma severity: mild Asthma persistence: intermittent Asthma complication type: with acute exacerbation Qualified Code(s): J45.21 - Mild intermittent asthma with (acute) exacerbation (4) Chronic sinusitis SNOMED Code(s): 64901864 Code(s): J32.9 - CHRONIC SINUSITIS, UNSPECIFIED Status: Chronic Current Visit: Yes Qualifiers: Sinusitis location: pansinusitis Qualified Code(s): J32.4 - Chronic pansinusitis (5) Hypertension SNOMED Code(s): 37973352 Code(s): I10 - ESSENTIAL (PRIMARY) HYPERTENSION Status: Chronic Current Visit: Yes Qualifiers: Hypertension type: essential hypertension Qualified Code(s): I10 - Essential (primary) hypertension (6) Hyperlipidemia SNOMED Code(s): 36324092 Code(s): E78.5 - HYPERLIPIDEMIA, UNSPECIFIED Status: Chronic Current Visit: Yes Qualifiers: Hyperlipidemia type: unspecified Qualified Code(s): E78.5 - Hyperlipidemia, unspecified (7) Obesity SNOMED Code(s): 590205877, 676507034 Code(s): E66.9 - OBESITY, UNSPECIFIED Status: Chronic Current Visit: Yes Qualifiers: Obesity type: due to excess calories Obesity classification: adult class 2 (BMI 35 - 39.9) - Problem List Review Problem List Initiated/Reviewed/Updated: Yes - My Orders Last 24 Hours: My Active Orders 09/23/20 20:03 Doxycycline [Vibramycin] 100 mg PO BID 09/24/20 09:53 Ondansetron [Zofran] 4 mg IVPUSH Q8H PRN 09/25/20 05:11 C-REACTIVE PROTEIN [CHEM] Routine CBC WITH AUTO DIFF [HEME] Routine COMPREHENSIVE METABOLIC PN,CMP [CHEM] Routine LACTATE DEHYDROGENASE,LDH [CHEM] Routine - Assessment Assessment:: 65 yo female admitted with COVID-19 pneumonia. Is about the same today compared to yesterday but still very weak without much appetite. Labs are stable/improving apart from her WBC's which are increased compared to prior, likely secondary to the dexamethasone. - Plan Plan:: #1 COVID-19 #2 Hypoxia - Symptoms and oxygen requirements overall stable. - Oxygen administration is complicated by known nasal polyps. - Will continue to work on weaning this. - Continues with generalized weakness and anorexia. She does not feel up to moving much today. - Creatinine up slightly today. However, will d/c IV fluids given fluid sensitive nature of COVID and patient stability of vital signs. Will recheck daily. - Continue dexamethasone. - Ferritin and CRP downtrending; LDH and O2 requirements stable. Therefore, still no indication for remdesivir. Will reassess daily. - Continue vitamin C, vitamin D, and zinc. - Zofran ordered for nausea. - No role for further antibiotics based on current clinical status and lab findings. As above, increase in WBC felt to be related to steroids. #3 Asthma with acute exacerbation - Continue albuterol inhaler PRN. - Hold breo given she will be on systemic steroids. - Dexamethasone as above. #4 Chronic Sinusitis - Doxycycline course has been completed. - Hold prednisone as we are doing dexamethasone instead. #5 Hypertension #6 Hyperlipidemia #7 Obesity - All stable chronic conditions. - Home medications continued. Patient will remain on acute today - had been hoping for d/c today but she is n ot ready at this time. Will continue to wean oxygen as able. Otherwise, details as above. Anticipate d/c in the next 1-2 days. See detailed plans as above. Code status is full - discussed on admission. Lovenox for VTE prophylaxis.
[2020-09-24] MEDS: Acetaminophen 325 MG Tab PO PRN (22:26)
[2020-09-25 08:57] LABS: ANION GAP 13.5 mmol/L (10-20)
[2020-09-25] MEDS ORDERED: REMDESIVIR 200 MG in Sodium Chloride 0.9% 250 ML IV ONE (09:03)
[2020-09-25] MEDS ORDERED: Albuterol 2.5 MG/0.5 ML UD Neb NEB PRN (09:04)
[2020-09-25] MEDS: Enoxaparin 40 MG/0.4 ML Syringe SUBCUT SCH (09:13)
[2020-09-25] MEDS: Doxycycline 100 MG Cap PO SCH ×2 (09:14→19:21)
[2020-09-25] MEDS: Ascorbic Acid 500 MG Tab PO SCH ×2 (09:15→19:21)
[2020-09-25] MEDS: Cholecalciferol (Vitamin D3) 25 MCG Tab PO SCH (09:15)
[2020-09-25] MEDS ORDERED: Albuterol 0.083% 2.5 MG/3 ML Neb Soln NEB PRN (09:15)
[2020-09-25] MEDS: Zinc (Zinc Gluconate) 50 MG Tab PO SCH (09:15)
[2020-09-25] MEDS: dexAMETHasone 2 MG, dexAMETHasone 4 MG PO SCH ×2 (09:16)
[2020-09-25] MEDS: Montelukast 10 MG Tab PO SCH (09:16)
[2020-09-25] MEDS: Hydrochlorothiazide 25 MG Tab PO SCH (09:16)
--- NOTE | 2020-09-25 09:20 | PCM.PN ---
- General Info Date of Service: 09/25/20 Subjective Update: 65 yo female hospital day #4 admitted with acute hypoxic respiratory failure secondary to COVID-19. Patient did not do well overnight. She was started on non-rebreather due to increased hypoxia. Per the nurse, this is really when she gets up to the bathroom or does any activity. But then she is having a harder time recovering after she does get back to bed. She states that overnight, she was having more trouble with her breathing even while laying in bed. She is very nervous this morning, wanting to talk to her children, and is worried that she is going to . However, she also states that she is not feeling short of breath at rest this morning. She only feels short of breath when she gets up to the restroom. She is not coughing. No fever or chills. Her appetite is still very poor and she is not eating or drinking much. She has been less nauseous and has not vomited. - Review of Systems General: Reports: No Symptoms HEENT: Reports: No Symptoms Pulmonary: Reports: Shortness of Breath, Cough Cardiovascular: Reports: No Symptoms Gastrointestinal: Reports: No Symptoms Genitourinary: Reports: No Symptoms Musculoskeletal: Reports: No Symptoms Skin: Reports: No Symptoms Neurological: Reports: No Symptoms Psychiatric: Reports: No Symptoms - Patient Data Vitals - Most Recent: Last Vital Signs Temp 36.6 C 09/25/20 06:00 Pulse 72 09/25/20 06:00 Resp 19 09/25/20 06:00 BP 123/75 09/25/20 06:00 Pulse Ox 91 L 09/25/20 06:00 Weight - Most Recent: 90.718 kg I&O - Last 24 Hours: Intake & Output 09/24/20 09/25/20 09/25/20 22:59 06:59 14:59 Intake Total 120 75 Output Total 100 Balance 20 75 Lab Results Last 24 Hours: Laboratory Results - last 24 hr 09/25/20 09/25/20 Range/Units 08:12 08:12 WBC 8.4 (4.0-10.0) x10^3/uL RBC 4.56 (4.00-5.50) x10^6/uL Hgb 13.1 (12.0-16.0) g/dL Hct 41.1 (33.0-47.0) % MCV 90.1 (78.0-93.0) fL MCH 28.7 (26.0-32.0) pg MCHC 31.9 L (32.0-36.0) g/dL RDW Coeff of Elan 13.5 (10.0-15.0) % Plt Count 252 (130-400) x10^3/uL Add Manual Diff Yes Neutrophils % (Manual) 88 H (50-80) % Band Neutrophils % 3 (0-6) % Lymphocytes % (Manual) 2 L (25-50) % Reactive Lymphs % 4 H (0) % Monocytes % (Manual) 3 (2-11) % Platelet Estimate Adequate Polychromasia Rare Hypochromasia Rare Sodium 141 (136-145) mmol/L Potassium 3.5 (3.5-5.1) mmol/L Chloride 102 (98-107) mmol/L Carbon Dioxide 29 (21-32) mmol/L Anion Gap 13.5 (10-20) mmol/L BUN 18 (7-18) mg/dL Creatinine 1.1 H (0.55-1.02) mg/dL Est Cr Clr Drug Dosing 36.14 mL/min Estimated GFR (MDRD) 50 Glucose 105 (74-106) mg/dL Calcium 8.8 (8.5-10.1) mg/dL Corrected Calcium 10.00 (8.5-10.1) mg/dL Total Bilirubin 0.4 (0.2-1.0) mg/dL AST 24 (15-37) U/L ALT 24 (14-59) U/L Alkaline Phosphatase 80 (46-116) U/L Lactate Dehydrogenase 392 H (81-234) U/L C-Reactive Protein 15.7 H (<=0.9) mg/dL Total Protein 7.1 (6.4-8.2) g/dL Albumin 2.5 L (3.4-5.0) g/dL Globulin 4.6 Albumin/Globulin Ratio 0.54 Shadi Results Last 24 Hours: Microbiology 09/22/20 18:29 Aerobic Blood Culture - Preliminary Blood - Venous - Lab Draw NO GROWTH AFTER 2 DAYS Anaerobic Blood Culture - Preliminary NO GROWTH AFTER 2 DAYS 09/22/20 17:20 Aerobic Blood Culture - Preliminary Blood - Venous NO GROWTH AFTER 2 DAYS Anaerobic Blood Culture - Preliminary NO GROWTH AFTER 2 DAYS Med Orders - Current: Current Medications Acetaminophen (Tylenol) 650 mg PO Q4H PRN PRN Reason: Pain (Mild 1-3)/fever Last Admin: 09/24/20 22:26 Dose: 650 mg Documented by: Albuterol (Ventolin Hfa) 0 gm INH Q4H PRN PRN Reason: Shortness of Breath Last Admin: 09/24/20 02:13 Dose: 2 puff Documented by: Albuterol (Proventil Neb Soln) 2.5 mg NEB Q4HRRT PRN PRN Reason: Shortness of Breath Ascorbic Acid (Vitamin C) 1,000 mg PO BID [facility] Last Admin: 09/25/20 09:15 Dose: 1,000 mg Documented by: Cholecalciferol (Vitamin D3) 25 mcg PO DAILY [facility] Last Admin: 09/25/20 09:15 Dose: 25 mcg Documented by: Dexamethasone 2 mg/ (Dexamethasone 4 mg) 6 mg PO DAILY [facility] Last Admin: 09/25/20 09:16 Dose: 6 mg Documented by: Doxycycline Hyclate (Vibramycin) 100 mg PO BID [facility] Stop: 09/25/20 20:01 Last Admin: 09/25/20 09:14 Dose: 100 mg Documented by: Enoxaparin Sodium (Lovenox) 40 mg SUBCUT DAILY [facility] Last Admin: 09/25/20 09:13 Dose: 40 mg Documented by: Hydrochlorothiazide (Hydrochlorothiazide) 12.5 mg PO DAILY [facility] Last Admin: 09/25/20 09:16 Dose: 12.5 mg Documented by: Remdesivir 200 mg/ Sodium (Chloride) 250 mls @ 250 mls/hr IV ONETIME ONE Stop: 09/25/20 10:02 Remdesivir 100 mg/ Sodium (Chloride) 100 mls @ 100 mls/hr IV Q24H [facility] Stop: 09/29/20 09:59 Montelukast Sodium (Singulair) 10 mg PO DAILY [facility] Last Admin: 09/25/20 09:16 Dose: 10 mg Documented by: Ondansetron HCl (Zofran) 4 mg IVPUSH Q8H PRN PRN Reason: Nausea Last Admin: 09/24/20 13:13 Dose: 4 mg Documented by: Sodium Chloride (Saline Flush) 10 ml FLUSH ASDIRECTED PRN PRN Reason: Keep Vein Open Zinc Gluconate (Zinc) 200 mg PO DAILY [facility] Last Admin: 09/25/20 09:15 Dose: 200 mg Documented by: Discontinued Medications Albuterol (Proventil Neb Soln) 2.5 mg NEB Q4HRRT PRN PRN Reason: Shortness of Breath Albuterol/Ipratropium (Duoneb 3.0-0.5 Mg/3 Ml) 3 ml NEB ONETIME ONE Stop: 09/22/20 17:31 Last Admin: 09/22/20 17:44 Dose: 3 ml Documented by: Ceftriaxone Sodium (Rocephin) 1 gm IVPUSH ONETIME ONE Stop: 09/23/20 18:26 Last Admin: 09/23/20 18:01 Dose: 1 gm Documented by: Ceftriaxone Sodium (Rocephin) Confirm Administered Dose 1 gm .ROUTE .STK-MED ONE Stop: 09/22/20 18:39 Last Admin: 09/22/20 18:40 Dose: Not Given Documented by: Dexamethasone (Decadron) 8 mg IVPUSH ONETIME ONE Stop: 09/22/20 17:32 Last Admin: 09/22/20 17:44 Dose: 8 mg Documented by: Sodium Chloride (Normal Saline) 1,000 mls @ 999 mls/hr IV ONETIME ONE Stop: 09/22/20 18:30 Last Admin: 09/22/20 17:44 Dose: 999 mls/hr Documented by: Sodium Chloride (Normal Saline) 1,000 mls @ 50 mls/hr IV ASDIRECTED [facility] Stop: 09/24/20 05:01 Last Admin: 09/24/20 07:36 Dose: 50 mls/hr Documented by: Ondansetron HCl (Zofran) 4 mg IVPUSH ONETIME ONE Stop: 09/22/20 17:31 Last Admin: 09/22/20 17:44 Dose: 4 mg Documented by: - Exam General: Alert, Oriented, Cooperative, No Acute Distress HEENT: Pupils Equal, Pupils Reactive, Mucous Membr. Moist/[place] Neck: Supple, Trachea Midline, No Thyromegaly. No: Lymphadenopathy Lungs: Normal Respiratory Effort, Crackles (throughout both lungs) Cardiovascular: Regular Rate, Regular Rhythm, No Murmurs GI/Abdominal Exam: Normal Bowel Sounds, Soft, Non-Tender, No Organomegaly, No Distention, No Mass Extremities: Normal Inspection, Non-Tender, No Pedal Edema, Normal Capillary Refill Peripheral Pulses: 2+: Radial (L), Radial (R) Skin: Warm, Dry, Intact Neurological: No New Focal Deficit Sepsis Event Note - Evaluation Sepsis Screening Result: No Definite Risk - Focused Exam Vital Signs: Vital Signs Temp Pulse Resp BP Pulse Ox 09/25/20 06:00 36.6 C 72 19 123/75 91 L 09/25/20 02:00 36.5 C 66 17 126/78 96 09/24/20 22:00 36.7 C 68 17 145/86 H 97 - Problem List & Annotations (1) COVID-19 SNOMED Code(s): 760250005 Code(s): U07.1 - COVID-19 Status: Acute Current Visit: Yes (2) Hypoxia SNOMED Code(s): 318955998 Code(s): R09.02 - HYPOXEMIA Status: Acute Current Visit: Yes (3) Asthma SNOMED Code(s): 701167287 Code(s): J45.909 - UNSPECIFIED ASTHMA, UNCOMPLICATED Status: Acute Current Visit: Yes Qualifiers: Asthma severity: mild Asthma persistence: intermittent Asthma complication type: with acute exacerbation Qualified Code(s): J45.21 - Mild intermittent asthma with (acute) exacerbation (4) Chronic sinusitis SNOMED Code(s): 23120021 Code(s): J32.9 - CHRONIC SINUSITIS, UNSPECIFIED Status: Chronic Current Visit: Yes Qualifiers: Sinusitis location: pansinusitis Qualified Code(s): J32.4 - Chronic pansinusitis (5) Hypertension SNOMED Code(s): 81157957 Code(s): I10 - ESSENTIAL (PRIMARY) HYPERTENSION Status: Chronic Current Visit: Yes Qualifiers: Hypertension type: essential hypertension Qualified Code(s): I10 - Essential (primary) hypertension (6) Hyperlipidemia SNOMED Code(s): 05097750 Code(s): E78.5 - HYPERLIPIDEMIA, UNSPECIFIED Status: Chronic Current Visit: Yes Qualifiers: Hyperlipidemia type: unspecified Qualified Code(s): E78.5 - Hyperlipidemia, unspecified (7) Obesity SNOMED Code(s): 810870214, 817852242 Code(s): E66.9 - OBESITY, UNSPECIFIED Status: Chronic Current Visit: Yes Qualifiers: Obesity type: due to excess calories Obesity classification: adult class 2 (BMI 35 - 39.9) - Problem List Review Problem List Initiated/Reviewed/Updated: Yes - My Orders Last 24 Hours: My Active Orders 09/24/20 09:53 Ondansetron [Zofran] 4 mg IVPUSH Q8H PRN 09/25/20 09:03 Remdesivir 200 mg Sodium Chloride 0.9% [Normal Saline] 250 ml IV ONETIME 09/25/20 09:15 Albuterol [Proventil Neb Soln] 2.5 mg NEB Q4HRRT PRN 09/26/20 05:11 CBC WITH AUTO DIFF [HEME] Routine COMPREHENSIVE METABOLIC PN,CMP [CHEM] Routine FERRITIN [CHEM] Routine INR,PT,PROTHROMBIN TIME [COAG] Routine LACTATE DEHYDROGENASE,LDH [CHEM] Routine PTT,PARTIAL THROMBOPLSTIN TIME [COAG] Routine 09/26/20 09:00 Remdesivir 100 mg Sodium Chloride 0.9% [Normal Saline] 100 ml IV Q24H - Assessment Assessment:: 65 yo female admitted with COVID-19 pneumonia. Worsened overnight with increased oxygen requirements of which I was made aware this morning on rounds. Labs stable or improved compared to yesterday. - Plan Plan:: #1 COVID-19 #2 Hypoxia - Did worsen slightly overnight. - Do suspect a large component of her symptoms is anxiety. - Will continue oxygen via non-rebreather or hi flow nasal cannula at this point. She does have nasal polyps, which complicates her oxygen administration; therefore, whichever she is more comfortable with would be fine. Patient will be moved to a negative pressure room so that we can start CPAP or BiPap if need be. - Continues with generalized weakness and anorexia. She is encouraged to eat and drink as she is able. - Creatinine better today. Patient will stay off IV fluids for now and will eat/drink ad erik. - Continue dexamethasone. - CRP up today. In light of this and her increased oxygen requirements, do recommend starting remdesivir. CrCl borderline yesterday but ok today. Patient notified of possible risk for allergic reaction and liver failure. She voices understanding and is agreeable to proceed. This is ordered. - Continue vitamin C, vitamin D, and zinc. - Zofran ordered for nausea. - No role for further antibiotics at this time. #3 Asthma with acute exacerbation - Suspect this is also contributing to her increased shortness of breath. - She is on dexamethasone. - She will be moved to a negative pressure room. Then we will do albuterol nebs every 4 hours PRN. - Will also start her on budesonide nebs given we are holding her breo. #4 Chronic Sinusitis - Doxycycline course has been completed. - Hold prednisone as we are doing dexamethasone instead. #5 Hypertension #6 Hyperlipidemia #7 Obesity - All stable chronic conditions. - Home medications continued. Patient will remain on acute today - is actually doing worse today than previous days and feels similar to when she presented to the ER. See detailed plans as above. Starting remdesivir and nebs today. Code status is full - discussed on admission. Lovenox for VTE prophylaxis.
[2020-09-25] MEDS: Budesonide 0.5 MG/2 ML Neb Susp NEB SCH ×2 (10:27→19:20)
[2020-09-25] MEDS: Acetaminophen 325 MG Tab PO PRN (19:21)
[2020-09-26] MEDS: Budesonide 0.5 MG/2 ML Neb Susp NEB SCH (07:25)
[2020-09-26 07:41] LABS: PTT,PARTIAL THROMBOPLSTIN TIME 26.4 SEC (25.6-32.8)
[2020-09-26 07:48] LABS: ANION GAP 11.9 mmol/L (10-20)
[2020-09-26 08:58] LABS: PCO2 ARTERIAL,POC 34 mmHg (35-48)
[2020-09-26] MEDS ORDERED: REMDESIVIR 100 MG in Sodium Chloride 0.9% 100 ML IV SCH (09:00)
[2020-09-26] MEDS: Enoxaparin 40 MG/0.4 ML Syringe SUBCUT SCH (09:25)
[2020-09-26] MEDS: Zinc (Zinc Gluconate) 50 MG Tab PO SCH (09:26)
[2020-09-26] MEDS: Hydrochlorothiazide 25 MG Tab PO SCH (09:27)
[2020-09-26] MEDS: Ascorbic Acid 500 MG Tab PO SCH (09:27)
[2020-09-26] MEDS: Cholecalciferol (Vitamin D3) 25 MCG Tab PO SCH (09:37)
[2020-09-26] MEDS: Montelukast 10 MG Tab PO SCH (09:37)
[2020-09-26] MEDS: dexAMETHasone 2 MG, dexAMETHasone 4 MG PO SCH ×2 (09:37)
--- NOTE | 2020-09-26 10:43 | PCM.DCSUM1 ---
Discharge Summary - Hospital Course Free Text/Narrative:: Nancy is a 65 yr old female on Hospital day #5 admitted for covid pneumonia and hypoxia after presenting to the ED with weakness. - Discharge Data Discharge Date: 09/26/20 Discharge Disposition: DC/Tfer to Acute Hospital 02 Condition: Fair - Referral to Home Health Primary Care Physician: Tata Landaverde PA-C - Discharge Diagnosis/Problem(s) (1) COVID-19 SNOMED Code(s): 606072636 ICD Code: U07.1 - COVID-19 Status: Acute Current Visit: Yes (2) Hypoxia SNOMED Code(s): 912643727 ICD Code: R09.02 - HYPOXEMIA Status: Acute Current Visit: Yes (3) Asthma SNOMED Code(s): 717012506 ICD Code: J45.909 - UNSPECIFIED ASTHMA, UNCOMPLICATED Status: Acute Current Visit: Yes Qualifiers: Asthma severity: mild Asthma persistence: intermittent Asthma complication type: with acute exacerbation Qualified Code(s): J45.21 - Mild intermittent asthma with (acute) exacerbation (4) Chronic sinusitis SNOMED Code(s): 00055527 ICD Code: J32.9 - CHRONIC SINUSITIS, UNSPECIFIED Status: Chronic Current Visit: Yes Qualifiers: Sinusitis location: pansinusitis Qualified Code(s): J32.4 - Chronic pansinusitis (5) Hyperlipidemia SNOMED Code(s): 81057925 ICD Code: E78.5 - HYPERLIPIDEMIA, UNSPECIFIED Status: Chronic Current Visit: Yes Qualifiers: Hyperlipidemia type: unspecified Qualified Code(s): E78.5 - Hyperlipidemia, unspecified (6) Hypertension SNOMED Code(s): 92668693 ICD Code: I10 - ESSENTIAL (PRIMARY) HYPERTENSION Status: Chronic Current Visit: Yes Qualifiers: Hypertension type: essential hypertension Qualified Code(s): I10 - Essential (primary) hypertension (7) Obesity SNOMED Code(s): 300639592, 292250984 ICD Code: E66.9 - OBESITY, UNSPECIFIED Status: Chronic Current Visit: Yes Qualifiers: Obesity type: due to excess calories Obesity classification: adult class 2 (BMI 35 - 39.9) - Patient Summary/Data Hospital Course: Nancy was admitted to acute care after presenting to the ER with weakness and poor appetite and was covid positive. She was given gentle IV fluids and started on supplemental oxygen via nasal cannula. She was also started on Dexamethasone and her Albuterol Inhaler was continued. She had initially improved during the first 48 hours of her hospitalization to the point that her IV fluids were discontinued and she was eating and drinking better; however, over the past 24 hours her oxygen requirements progressively increased. She was started on Remdesivir on 09/25 and placed on 15 L/ high flow nasal cannula. This morning with further decrease in saturations, she was started on Bipap. Given clinical worsening despite above treatments, the recommendation was made to transfer her to [place]. The patient and family were in agreement with this plan. I called [facility] and the hospitalist accepted her care. Paperwork completed. She was transferred to [facility] via Ambulance in stable but guarded condition. - Discharge Plan *PRESCRIPTION DRUG MONITORING PROGRAM REVIEWED*: No *COPY OF PRESCRIPTION DRUG MONITORING REPORT IN PATIENT ALEX: No Home Medications: Home Meds Albuterol Sulfate [Proair Hfa] 2 puff IH QID PRN 12/15/18 [History] Fluticasone/Vilanterol [Breo Ellipta 200-25 MCG Inhalation Kit] 1 puff IH DAILY 12/15/18 [History] Albuterol/Ipratropium [DuoNeb 3.0-0.5 MG/3 ML] 3 ml NEB Q4HRRT 1 Days #30 neb 12/17/18 [Rx] Doxycycline [Vibramycin] 100 mg PO BID #20 cap 12/17/18 [Rx] Montelukast [Singulair] 10 mg PO BEDTIME 09/22/20 [History] hydroCHLOROthiazide [Hydrochlorothiazide] 12.5 mg PO DAILY 09/22/20 [History] predniSONE 10 mg PO .TAPER 09/22/20 [History] Oxygen Therapy Mode: BiPAP Forms: ED Department Discharge, Interfacility Transfer EMTALA Referrals: Tata Landaverde PA-C [Primary Care Provider] - - Discharge Summary/Plan Comment DC Time >30 min.: Yes (45 minutes) - General Info Functional Status: Reports: Pain Controlled - Review of Systems General: Reports: Weakness, Fatigue, Malaise, Appetite HEENT: Reports: No Symptoms Pulmonary: Reports: Shortness of Breath Gastrointestinal: Reports: No Symptoms Genitourinary: Reports: No Symptoms Musculoskeletal: Reports: No Symptoms Skin: Reports: No Symptoms Neurological: Reports: Weakness Psychiatric: Reports: Anxiety - Patient Data Vitals - Most Recent: Last Vital Signs Temp 35.9 C L 09/26/20 06:00 Pulse 65 09/26/20 06:00 Resp 26 H 09/26/20 06:00 BP 140/73 09/26/20 06:00 Pulse Ox 94 L 09/26/20 07:26 Weight - Most Recent: 90.718 kg I&O - Last 24 hours: Intake & Output 09/25/20 09/26/20 09/26/20 22:59 06:59 14:59 Intake Total 50 200 Balance 50 200 Lab Results - Last 24 hrs: Laboratory Results - last 24 hr 09/26/20 09/26/20 09/26/20 Range/Units 06:48 06:48 06:48 WBC 8.4 (4.0-10.0) x10^3/uL RBC 4.62 (4.00-5.50) x10^6/uL Hgb 13.4 (12.0-16.0) g/dL Hct 41.0 (33.0-47.0) % MCV 88.7 (78.0-93.0) fL MCH 29.0 (26.0-32.0) pg MCHC 32.7 (32.0-36.0) g/dL RDW Coeff of Elan 13.3 (10.0-15.0) % Plt Count 281 (130-400) x10^3/uL Add Manual Diff Yes Neutrophils % (Manual) 90 H (50-80) % Lymphocytes % (Manual) 6 L (25-50) % Monocytes % (Manual) 4 (2-11) % Platelet Estimate Adequate Giant Platelets Occasional H Ovalocytes 1+ slight H PT 10.2 (9.5-12.3) SEC INR 0.9 L (2.0-3.5) APTT 26.4 (25.6-32.8) SEC POC ABG pH (7.35-7.45) pH POC ABG pCO2 (35-48) mmHg POC ABG pO2 (83-108) mmHg POC ABG HCO3 (21-28) mmol/L POC ABG Total CO2 POC ABG O2 Sat % POC ABG Base Excess (-2-3) mmol/L POC FiO2 Sodium 140 (136-145) mmol/L Potassium 3.9 (3.5-5.1) mmol/L Chloride 100 (98-107) mmol/L Carbon Dioxide 32 (21-32) mmol/L Anion Gap 11.9 (10-20) mmol/L BUN 22 H (7-18) mg/dL Creatinine 1.0 (0.55-1.02) mg/dL Est Cr Clr Drug Dosing 39.75 mL/min Estimated GFR (MDRD) 55 Glucose 102 (74-106) mg/dL Calcium 9.3 (8.5-10.1) mg/dL Corrected Calcium 10.58 H (8.5-10.1) mg/dL Ferritin (8-252) ng/mL Total Bilirubin 0.4 (0.2-1.0) mg/dL AST 34 (15-37) U/L ALT 30 (14-59) U/L Alkaline Phosphatase 77 (46-116) U/L Lactate Dehydrogenase 406 H (81-234) U/L Total Protein 7.2 (6.4-8.2) g/dL Albumin 2.4 L (3.4-5.0) g/dL Globulin 4.8 Albumin/Globulin Ratio 0.50 09/26/20 09/26/20 Range/Units 06:48 08:40 WBC (4.0-10.0) x10^3/uL RBC (4.00-5.50) x10^6/uL Hgb (12.0-16.0) g/dL Hct (33.0-47.0) % MCV (78.0-93.0) fL MCH (26.0-32.0) pg MCHC (32.0-36.0) g/dL RDW Coeff of Elan (10.0-15.0) % Plt Count (130-400) x10^3/uL Add Manual Diff Neutrophils % (Manual) (50-80) % Lymphocytes % (Manual) (25-50) % Monocytes % (Manual) (2-11) % Platelet Estimate Giant Platelets Ovalocytes PT (9.5-12.3) SEC INR (2.0-3.5) APTT (25.6-32.8) SEC POC ABG pH 7.53 H (7.35-7.45) pH POC ABG pCO2 34 L (35-48) mmHg POC ABG pO2 72 L (83-108) mmHg POC ABG HCO3 28.1 H (21-28) mmol/L POC ABG Total CO2 TNP POC ABG O2 Sat 96.0 % POC ABG Base Excess 5 H (-2-3) mmol/L POC FiO2 0.8 Sodium (136-145) mmol/L Potassium (3.5-5.1) mmol/L Chloride (98-107) mmol/L Carbon Dioxide (21-32) mmol/L Anion Gap (10-20) mmol/L BUN (7-18) mg/dL Creatinine (0.55-1.02) mg/dL Est Cr Clr Drug Dosing mL/min Estimated GFR (MDRD) Glucose (74-106) mg/dL Calcium (8.5-10.1) mg/dL Corrected Calcium (8.5-10.1) mg/dL Ferritin 392 H (8-252) ng/mL Total Bilirubin (0.2-1.0) mg/dL AST (15-37) U/L ALT (14-59) U/L Alkaline Phosphatase (46-116) U/L Lactate Dehydrogenase (81-234) U/L Total Protein (6.4-8.2) g/dL Albumin (3.4-5.0) g/dL Globulin Albumin/Globulin Ratio JORGE Results - Last 24 hrs: Microbiology 09/22/20 18:29 Aerobic Blood Culture - Preliminary Blood - Venous - Lab Draw NO GROWTH AFTER 3 DAYS Anaerobic Blood Culture - Preliminary NO GROWTH AFTER 3 DAYS 09/22/20 17:20 Aerobic Blood Culture - Preliminary Blood - Venous NO GROWTH AFTER 3 DAYS Anaerobic Blood Culture - Preliminary NO GROWTH AFTER 3 DAYS Med Orders - Current: Current Medications Acetaminophen (Tylenol) 650 mg PO Q4H PRN PRN Reason: Pain (Mild 1-3)/fever Last Admin: 09/25/20 19:21 Dose: 650 mg Documented by: Albuterol (Ventolin Hfa) 0 gm INH Q4H PRN PRN Reason: Shortness of Breath Last Admin: 09/24/20 02:13 Dose: 2 puff Documented by: Albuterol (Proventil Neb Soln) 2.5 mg NEB Q4HRRT PRN PRN Reason: Shortness of Breath Last Admin: 09/25/20 10:25 Dose: 2.5 mg Documented by: Ascorbic Acid (Vitamin C) 1,000 mg PO BID [facility] Last Admin: 09/26/20 09:27 Dose: 1,000 mg Documented by: Budesonide (Pulmicort) 0.5 mg NEB BIDRT [facility] Last Admin: 09/26/20 07:25 Dose: 0.5 mg Documented by: Cholecalciferol (Vitamin D3) 25 mcg PO DAILY [facility] Last Admin: 09/26/20 09:37 Dose: 25 mcg Documented by: Dexamethasone 2 mg/ (Dexamethasone 4 mg) 6 mg PO DAILY [facility] Last Admin: 09/26/20 09:37 Dose: 6 mg Documented by: Enoxaparin Sodium (Lovenox) 40 mg SUBCUT DAILY [facility] Last Admin: 09/26/20 09:25 Dose: 40 mg Documented by: Hydrochlorothiazide (Hydrochlorothiazide) 12.5 mg PO DAILY [facility] Last Admin: 09/26/20 09:27 Dose: 12.5 mg Documented by: Remdesivir 100 mg/ Sodium (Chloride) 100 mls @ 100 mls/hr IV Q24H [facility] Stop: 09/29/20 09:59 Last Admin: 09/26/20 09:36 Dose: 100 mls/hr Documented by: Montelukast Sodium (Singulair) 10 mg PO DAILY [facility] Last Admin: 09/26/20 09:37 Dose: 10 mg Documented by: Ondansetron HCl (Zofran) 4 mg IVPUSH Q8H PRN PRN Reason: Nausea Last Admin: 09/24/20 13:13 Dose: 4 mg Documented by: Sodium Chloride (Saline Flush) 10 ml FLUSH ASDIRECTED PRN PRN Reason: Keep Vein Open Zinc Gluconate (Zinc) 200 mg PO DAILY [facility] Last Admin: 09/26/20 09:26 Dose: 200 mg Documented by: Discontinued Medications Albuterol (Proventil Neb Soln) 2.5 mg NEB Q4HRRT PRN PRN Reason: Shortness of Breath Albuterol/Ipratropium (Duoneb 3.0-0.5 Mg/3 Ml) 3 ml NEB ONETIME ONE Stop: 09/22/20 17:31 Last Admin: 09/22/20 17:44 Dose: 3 ml Documented by: Ceftriaxone Sodium (Rocephin) 1 gm IVPUSH ONETIME ONE Stop: 09/23/20 18:26 Last Admin: 09/23/20 18:01 Dose: 1 gm Documented by: Ceftriaxone Sodium (Rocephin) Confirm Administered Dose 1 gm .ROUTE .STK-MED ONE Stop: 09/22/20 18:39 Last Admin: 09/22/20 18:40 Dose: Not Given Documented by: Dexamethasone (Decadron) 8 mg IVPUSH ONETIME ONE Stop: 09/22/20 17:32 Last Admin: 09/22/20 17:44 Dose: 8 mg Documented by: Doxycycline Hyclate (Vibramycin) 100 mg PO BID [facility] Stop: 09/25/20 20:01 Last Admin: 09/25/20 19:21 Dose: 100 mg Documented by: Sodium Chloride (Normal Saline) 1,000 mls @ 999 mls/hr IV ONETIME ONE Stop: 09/22/20 18:30 Last Admin: 09/22/20 17:44 Dose: 999 mls/hr Documented by: Sodium Chloride (Normal Saline) 1,000 mls @ 50 mls/hr IV ASDIRECTED [facility] Stop: 09/24/20 05:01 Last Admin: 09/24/20 07:36 Dose: 50 mls/hr Documented by: Remdesivir 200 mg/ Sodium (Chloride) 250 mls @ 250 mls/hr IV ONETIME ONE Stop: 09/25/20 10:02 Last Admin: 09/25/20 10:21 Dose: 250 mls/hr Documented by: Ondansetron HCl (Zofran) 4 mg IVPUSH ONETIME ONE Stop: 09/22/20 17:31 Last Admin: 09/22/20 17:44 Dose: 4 mg Documented by: - Exam Quality Assessment: Reports: Supplemental Oxygen, DVT Prophylaxis General: Reports: Alert, Oriented, Mild Distress, Lethargic Lungs: Reports: Clear to Auscultation Cardiovascular: Reports: Regular Rate, Regular Rhythm GI/Abdominal Exam: Normal Bowel Sounds, Soft Skin: Reports: Warm, Dry, Intact Neurological: Reports: No New Focal Deficit Psy/Mental Status: Reports: Alert, Anxious (Increased lethargy from yesterday. Minimal verbal answers. Speech weak. Desats with slight turn to left and right for lung assessments. )
== END 2020-09-26 11:35 | disposition short-term general hospital (02) | DRG 137 ==
LOC: VM.ED 17:07 → VM.MS 19:21
PROVIDERS: ADMIT Family Medicine; ATTEND Family Medicine
PROC: XW033E5 Introduction of Remdesivir Anti-infective into Peripheral Vein, Percutaneous Approach, New Technology Group 5 (ICD-10-PCS; principal; 2020-09-22)
DX: U07.1 COVID-19 (principal); J12.89 Other viral pneumonia; J96.01 Acute respiratory failure with hypoxia; J45.21 Mild intermittent asthma with (acute) exacerbation; J32.4 Chronic pansinusitis; E78.5 Hyperlipidemia, unspecified; I10 Essential (primary) hypertension; E66.9 Obesity, unspecified; E78.00 Pure hypercholesterolemia, unspecified; Z96.659 Presence of unspecified artificial knee joint; Z98.49 Cataract extraction status, unspecified eye; Z68.38 Body mass index [BMI] 38.0-38.9, adult; Z79.52 Long term (current) use of systemic steroids; Z79.899 Other long term (current) drug therapy; Z88.6 Allergy status to analgesic agent; Z98.51 Tubal ligation status
CPT/HCPCS: 36415; 36600; 71045; 80048; 80053; 82728; 82803; 83605; 83615; 83735; 84484; 85025; 85379; 85610; 85730; 86140; 87040; 93005; 93010; 94640; 94660; 94760; 96361; 96374; 96375; 99284; 99285-25; A9270-GY; J0696; J1100; J1650; J2405; J7030; J7050; J7613-GY; J7620-GY; J8540